=== PATIENT | female | born 1970 | race Caucasian/White ===

== ENCOUNTER → 2017-03-29 | Outpatient (CLI) | payer OTHER ==
[~2017-03-29] MED LIST: B-CO1CAP2 PO; CALC500C70 PO; CHOL1TAB2 PO; DOCU-94; HYD50; MULT-506 PO; NRN/100 PO; PRLSR20 PO
[2017-03-29 07:29] LABS: THYROID STIMULATING HORMONE 0.871 uIu/ml (0.300-4.500)
== END | disposition home or self-care (01) ==
LOC: C.LAB 04:55
PROVIDERS: ATTEND Physician Assistant
DX: E03.9 Hypothyroidism, unspecified (principal)

== ENCOUNTER → 2017-03-30 | Outpatient (CLI) | payer OTHER ==
--- NOTE | 2017-03-30 15:41 | MAMMOGRAPHY REPORT ---
BILATERAL DIGITAL SCREENING MAMMOGRAM TOMOSYNTHESIS WITH CAD: 03/30/2017 CLINICAL HISTORY: Routine screening. Patient has no complaints. TECHNIQUE: Breast tomosynthesis in addition to standard 2D mammography was performed. Current study was also evaluated with a Computer Aided Detection (CAD) system. COMPARISON: Comparison is made to exams dated: 10/30/2013 mammogram, 10/04/2012 mammogram, 09/14/2011 mammogram, and 09/07/2011 mammogram - [facility]. BREAST COMPOSITION: The tissue of both breasts is almost entirely fatty. FINDINGS: No suspicious masses, calcifications, or areas of architectural distortion are noted in e ither breast. There has been no significant interval change compared to prior exams. Scattered bilat eral benign-appearing calcifications are not significantly changed. IMPRESSION: ACR BI-RADS CATEGORY 2: BENIGN There is no mammographic evidence of malignancy. A 1 year screening mammogram is recommended. The p atient will receive written notification of the results. Approximately 10% of breast cancers are not detected with mammography. A negative mammographic repor t should not delay biopsy if a clinically suggestive mass is present. Danuta Dill M.D. /:03/30/2017 12:13:51 Moose Hunter: Sarah PADGETT(Jose)(Suzy)(BD), [facility] letter sent: Normal 1/2 BI-RADS Code: ACR BI-RADS Category 2: Benign
== END | disposition home or self-care (01) ==
LOC: C.MAMM 09:16
PROVIDERS: ATTEND Physician Assistant
DX: Z12.31 Encounter for screening mammogram for malignant neoplasm of breast (principal); Z85.3 Personal history of malignant neoplasm of breast; Z08 Encounter for follow-up examination after completed treatment for malignant neoplasm

== ENCOUNTER 2019-03-10 07:10 | Observation (INO) ==
--- NOTE | 2019-03-06 10:06 | Anesthesiology Consultation ---
Date of Service March 06, 2019 Assessment & Plan (1) Encounter for pre-operative examination: Chart Review Chart Review: Acceptable Risk for Surgery and Patient seen in Pre Admission Testing Consults Requested none Teaching & Discussion Instructed NPO after midnight before surgery, except medications with 15 cc of water. Medication instructions provided according to the PAT guidelines. ASA ASA2 Proposed Anesthesia Anesthesia Type: General Risk / Benefits Reviewed With: PT / POA / Parent / Guardian, Accepts Plan and Informed Consent Obtained NPO Date Last Intake of Fluids: 03/09/19 Time Last Intake of Fluids: 21:00 Date Last Intake of Solids: 03/09/19 Time Last Intake of Solids: 21:00 History Surgery Operation Date: 03/10/19 08:20 Proposed Procedures p Laparoscopic Incisional Hernia Repair - Amos Knowles MD, FACS Height/Weight Height: 5 ft 3 in Weight: 91.9 kg Allergies Allergy/AdvReac Type Severity Reaction Status Date / Time nortriptyline AdvReac Unknown Tachycardia Verified 03/10/19 07:26 Medications Home Medications Medication Instructions Recorded Confirmed Last Taken bisacodyl [Dulcolax (bisacodyl)] 5 mg PO HS PRN 02/27/19 03/10/19 03/07/19 22:00 cholecalciferol (vitamin D3) 1,000 unit PO DAILY 02/27/19 03/10/19 03/09/19 10:00 [Vitamin D3] clonazepam 0.5 mg PO HS PRN 02/27/19 03/10/19 03/07/19 22:00 docusate sodium [Stool Softener] 100 mg PO DAILY 02/27/19 03/10/19 03/08/19 10:00 furosemide 40 mg PO DAILY 02/27/19 03/10/19 03/09/19 10:00 levothyroxine 100 mcg PO QAM 02/27/19 03/10/19 03/10/19 05:00 magnesium chloride [Slow-Mag] 71.5 mg PO DAILY 02/27/19 03/10/19 03/09/19 10:00 meloxicam 15 mg PO DAILY 02/27/19 03/10/19 03/09/19 10:00 multivitamin 1 tab PO DAILY 02/27/19 03/10/19 03/09/19 10:00 omeprazole 20 mg PO DAILY PRN 02/27/19 03/10/19 03/10/19 05:45 polyethylene glycol 3350 [Miralax] 17 g PO Q2D 02/27/19 03/10/19 03/07/19 22:00 potassium bicarb-magnesium 21 1 dose PO Q3D 02/27/19 03/10/19 03/09/19 10:00 tizanidine 4 mg PO HS 02/27/19 03/10/19 03/09/19 22:00 vitamin B complex 1 tab PO DAILY 02/27/19 03/10/19 03/09/19 10:00 zolpidem [Ambien CR] 12.5 mg PO HS PRN 02/27/19 03/10/19 03/09/19 22:00 Past Medical History Medical History GERD (gastroesophageal reflux disease) Hypothyroidism Migraine Peptic ulcer disease H/O Thyroid nodule MONITORING Mitral regurgitation MILD per 2013 echo Past Family History Family History Father Family history of diabetes mellitus Past Surgical History Surgical History History of adenoidectomy History of colonoscopy History of esophagogastroduodenoscopy (EGD) History of herniorrhaphy INGUINAL HERNIA History of hysterectomy LAP TOTAL HYSTER History of tonsillectomy History of bladder surgery Bladder tack Past Anesthesia History No Hx of Anesthesia Complications and No Family Hx of Anesthesia Complications 2013 umbilical hernia repair [facility] = MAC 3, ETT 7.0, grade view I. Smooth IV induction with atraumatic ETT placement. 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 Current sinus infection, on Z pac now. Physical Exam Vital Signs Last Vital Signs Temp 36.9 C 03/10/19 07:33 Pulse 82 03/10/19 07:33 Resp 18 03/10/19 07:33 BP 176/84 H 03/10/19 07:33 BP: 171/88 (pt is very anxious today. Rpt manual LUE 142/82 10 mins later) P: 79bpm SPO2: 97% RA T: 98.3 F R: 16 ENMT Mouth: + chipped teeth (one upper L molar broken); no dental restorations and no loose teeth Thyromental Distance: > or= 3.5 Finger Breadths (3.5) Mallampati Class: II Neck normal visual inspection, trachea midline and + thick neck; neck extension not limited Respiratory normal respiratory effort Auscultation: lungs clear to auscultation bilaterally Cardiovascular Rate/Rhythm: regular rate and regular rhythm Heart Sounds: no murmur Vessels: no carotid bruit Extremities: no edema Musculoskeletal Spine: normal cervical ROM Neurologic moves all extremities Motor/Sensory: no sensory deficit Psychiatric Orientation: alert and oriented x 3 Testing Electrocardiogram Date: 03/06/19 Findings: + NSR @ (73) Laboratory Results 03/06/19 10:31 03/06/19 10:31
--- NOTE | 2019-03-06 10:20 | PAT Medication Instructions ---
Medication Instructions Date of Service March 06, 2019 Home Medications bisacodyl [Dulcolax (bisacodyl)] 5 mg PO HS cholecalciferol (vitamin D3) 1,000 unit PO DAILY clonazepam 0.5 mg PO HS PRN docusate sodium [Stool Softener] 100 mg PO DAILY furosemide 40 mg PO DAILY levothyroxine 100 mcg PO QAM magnesium chloride [Slow-Mag] 71.5 mg PO DAILY meloxicam 15 mg PO DAILY multivitamin 1 tab PO DAILY omeprazole 20 mg PO DAILY PRN polyethylene glycol 3350 [Miralax] 17 g PO Q2D potassium bicarb-magnesium 21 1 dose PO Q3D tizanidine 4 mg PO HS vitamin B complex 1 tab PO DAILY zolpidem [Ambien CR] 12.5 mg PO HS PRN ASK your surgeon for instructions meloxicam 15 mg PO DAILY DO NOT take the morning of surgery cholecalciferol (vitamin D3) 1,000 unit PO DAILY docusate sodium [Stool Softener] 100 mg PO DAILY furosemide 40 mg PO DAILY magnesium chloride [Slow-Mag] 71.5 mg PO DAILY multivitamin 1 tab PO DAILY polyethylene glycol 3350 [Miralax] 17 g PO Q2D potassium bicarb-magnesium 21 1 dose PO Q3D vitamin B complex 1 tab PO DAILY Take morning of surgery With a small sip of water, OTHERWISE NOTHING TO EAT OR DRINK AFTER MIDNIGHT: levothyroxine 100 mcg PO QAM omeprazole 20 mg PO DAILY PRN Take evening before surgery bisacodyl [Dulcolax (bisacodyl)] 5 mg PO HS clonazepam 0.5 mg PO HS PRN tizanidine 4 mg PO HS zolpidem [Ambien CR] 12.5 mg PO HS PRN Insulin Dependent Diabetic Patients * Test your blood sugar the morning of surgery * If Blood Sugar is GREATER THAN 150, take HALF of your regular dose of: * If Blood Sugar is LESS THAN 150, DO NOT TAKE ANY: Other Notes If you have any questions please call us at [phone] or [phone] or [phone] or [phone]
[2019-03-06 11:25] LABS: Basophils # (auto) 0.02 K/uL (0-0.2); Basophils % (auto) 0.3 %; Eosinophils # (auto) 0.24 K/uL (0-0.5); Eosinophils % (auto) 3.3 %; Hemoglobin 15.6 g/dL (12.0-16.0); Immature Granulocytes # (auto) 0.03 K/uL (0.00-0.02); Immature Granulocytes % (auto) 0.4 %; Lymphocytes # (auto) 2.14 K/uL (1.2-3.4); Lymphocytes % (auto) 29.1 %; Mean Corpuscular Hgb Conc 34.7 g/dL (32-36); Mean Corpuscular Volume 89.8 fL (80-100); Mean Platelet Volume 11.4 fL (7.4-10.4); Monocytes # (auto) 0.61 K/uL (0.11-0.59); Monocytes % (auto) 8.3 %; Neutrophils # (auto) 4.31 K/uL (1.4-6.5); Neutrophils % (auto) 58.6 %; Platelet Count 217 K/uL (130-400); RDW Coefficient of Variation 13.1 % (11.5-14.5); RDW Standard Deviation 42.7 fL (36.4-46.3); Red Blood Count 5.01 M/uL (4.2-5.4); White Blood Count 7.35 K/uL (4.8-10.8)
[2019-03-06 11:37] LABS: Calcium 9.4 mg/dl (8.5-10.1); Creatinine Clr Calc Pharmacy 95.3 ml/min; Est GFR (Non-African American) 91.5; Potassium 3.4 mmol/L (3.5-5.1)
[~2019-03-10 07:10] MED LIST changes: -B-CO1CAP2 PO; -CALC500C70 PO; +CEFAZOLIN 2000MG 2,000 MG/15 ML SYR IV SCH; -CHOL1TAB2 PO; -DOCU-94; -HYD50; +LR 15ML/HR IV SCH; -MULT-506 PO; -NRN/100 PO; -PRLSR20 PO
[2019-03-10] MEDS ORDERED: PROPOFOL IV EMULSION 10 MG/ML 20 ML VIAL IV ONE (07:27)
[2019-03-10] MEDS ORDERED: LIDOCAINE HCL 2% 2 ML VIAL/AMP(20MG/ML) INFIL ONE (07:27)
[2019-03-10] MEDS ORDERED: fentaNYL citrate 100 MCG/2 ML VIAL ONE (07:27)
[2019-03-10] MEDS ORDERED: ONDANSETRON INJ 2 MG/ML 2 ML VIAL ONE (07:27)
[2019-03-10] MEDS ORDERED: ROCURONIUM BROMIDE 10 MG/ML 5 ML VIAL ONE (07:27)
[2019-03-10] MEDS ORDERED: DEXAMETHASONE SOD INJ 4 MG/ML VIAL ONE (07:27)
[2019-03-10] MEDS ORDERED: MIDAZOLAM HCL 1 MG/ML 2ML VIAL ONE (07:27)
--- NOTE | 2019-03-10 08:02 | History & Physical Bridge Note ---
Date of Service March 10, 2019 History & Physical Bridge Note I have examined the patient, reviewed the History & Physical and in the interval since the performance of the History & Physical I have noted the following changes of clinical significance: no changes noted
[2019-03-10] MEDS ORDERED: BUPIVACAINE 0.5 % 5 MG/1 ML MPF 30ML VIAL ONE (08:03)
[2019-03-10] MEDS ORDERED: GLYCOPYRROLATE 0.2 MG/ML VIAL ONE ×2 (08:32→08:58)
[2019-03-10] MEDS ORDERED: NEOSTIGMINE METHYLSULFATE 5 MG/5 ML SYR ONE (08:32)
[2019-03-10] MEDS ORDERED: ACETAMINOPHEN 1000 MG/100 ML IV IV ONE (08:43)
[2019-03-10] MEDS ORDERED: ACETAMINOPHEN 1,000 MG/100 ML VIAL IV ONE (08:59)
--- NOTE | 2019-03-10 08:59 | Operative Report ---
Post Operative Report Pre & Post Diagnosis Operation Date: 03/10/19 08:20 Pre-Op Diagnosis: Incisional Hernia Post-Op Diagnosis: Incisional Hernia Procedure Operation Date: 03/10/19 08:20 Actual Procedures p Laparoscopic Incisional Hernia Repair(Not Applicable) - Amos Knowles MD, FACS Surgeon Amos Knowles MD, FACS [employer] Instruments Supervisor Chiki Quintero Estimated Blood Loss 5 Findings Consistent with Post-Op Diagnosis Specimens none Description of Procedure see dictation pt had 3 defects- used 12.5 cm surgimesh I attest to the content of the Intraoperative Record and any orders documented therein. Any exceptions are noted below.
[2019-03-10] MEDS ORDERED: KETOROLAC 30 MG/ML VIAL ONE (09:05)
--- NOTE | 2019-03-10 09:18 | Operative Report ---
DATE OF OPERATION: 03/10/2019 NAME OF OPERATION: Laparoscopic repair of incision hernia (3 defects), lysis of adhesions. STAFF SURGEON: Amos Knowles MD GIS GEOGRAPHER: Adrien Quintero PA-C ANESTHESIA: General. DESCRIPTION OF PROCEDURE: The patient was brought in the operating room and placed on the operating table in supine position. Her abdomen was prepped and draped in usual fashion. Pneumatic stockings and orogastric tube were placed. Using 0.5% plain Marcaine, all incisions were anesthetized. Incision was made in the left upper quadrant carrying dissection down to the fascia, placing a Veress needle producing pneumoperitoneum. An 11 mm port was placed at this level and then under visualization, four 5 mm ports placed, 2 on the left, 2 on the right. This was all under visualization. The patient did have some omentum and also what appeared to be small bowel within an incisional hernia just above the umbilicus. The hernia was relatively small, less than 2 cm. She had another defect approximately 1.5 cm above that and then at the umbilicus, there was a weakness. At this point, I felt that a 12.5 cm piece of Surgimesh would be appropriate to cover all defects. It was placed into the abdomen through an 11 mm port. The polypropylene was placed toward the fascia, the silicone toward the bowel. This was after the adhesions were taken down. Once the adhesions were all taken down and the mesh was placed into the abdomen, it was brought up through a small incision using a suture passer and then it was secured with 2 rows of absorbable tacks, 1 outer row and 1 inner row. At this point, the pneumoperitoneum was reduced. All ports were removed. The fascia at the left upper quadrant closed using interrupted 0 Vicryl suture. The 5 mm sites closed using subcuticular 4-0 Monocryl with Dermabond. The small incision near the umbilicus and then the left upper quadrant sites closed using 5-0 Prolene suture. The patient transferred to the recovery room in stable condition. My market research assistant helped with prepping, draping, repair of the hernias, lysis of the adhesions and closure of the wounds. I attest to the content of the Intraoperative Record and any orders documented therein. Any exception s are noted below.
[2019-03-10] MEDS ORDERED: ATROPINE SULFATE 0.1 MG/ML 10ML SYR IV PRN (09:19)
[2019-03-10] MEDS ORDERED: ONDANSETRON INJ 2 MG/ML 2 ML VIAL IV PRN ×2 (09:19→10:19)
[2019-03-10] MEDS ORDERED: FLUMAZENIL 0.1 MG/1 ML 10 ML VIAL IV PRN (09:19)
[2019-03-10] MEDS ORDERED: NALOXONE HCL 0.4 MG/1 ML VIAL/CARP IV PRN (09:19)
[2019-03-10] MEDS ORDERED: PROMETHAZINE HCL 12.5 MG in SODIUM CHLORIDE 0.9% 50 ML IV PRN ×2 (09:19→10:19)
[2019-03-10] MEDS ORDERED: LABETALOL HCL IV 5 MG/ML 20ML IV PRN (09:19)
[2019-03-10] MEDS ORDERED: ePHEDrine sulfate 50 MG/ML AMP IV PRN (09:19)
[2019-03-10] MEDS ORDERED: HYDROmorphone INJ 1 MG/ML SYRINGE ONE (09:24)
[2019-03-10] MEDS: HYDROmorphone INJ 1 MG/ML SYRINGE IV PRN ×5 (09:24→20:58)
--- NOTE | 2019-03-10 09:50 | Anesthesiology Progress Note ---
Date of Service March 10, 2019 Anesthesia Post Procedure Vital Signs Vital Signs: Temp Pulse Pulse Resp BP BP Pulse Ox 03/10/19 09:45 88 13 141/80 H 97 03/10/19 09:35 86 14 153/79 H 97 03/10/19 09:25 86 17 155/80 H 96 03/10/19 09:16 36.3 C L 96 H 12 141/80 H 94 03/10/19 07:33 36.9 C 82 18 176/84 H Pain Intensity Abdomen: Pain Intensity: 3 Notes Mental Status: alert / awake / arousable Patient Amnestic to Procedure: Yes Nausea / Vomiting: adequately controlled Pain: adequately controlled Airway Patency, RR, SpO2: stable & adequate BP & HR: stable & adequate Hydration State: stable & adequate Anesthetic Complications: no major complications apparent
[2019-03-10] MEDS ORDERED: IBUPROFEN 600 MG TAB PO PRN (10:19)
[2019-03-10] MEDS ORDERED: clonazePAM 0.5 MG TAB PO PRN (10:19)
[2019-03-10] MEDS ORDERED: PANTOprazole 40 MG TAB PO PRN (10:19)
[2019-03-10] MEDS ORDERED: HYDROCODONE/ACETAMOPHEN 5/325MG TAB PO PRN (10:19)
[2019-03-10] MEDS ORDERED: ACETAMINOPHEN 325 MG TAB PO PRN (10:19)
[2019-03-10] MEDS ORDERED: PROMETHAZINE HCL 25 MG in SODIUM CHLORIDE 0.9% 50 ML IV PRN (10:19)
[2019-03-10] MEDS ORDERED: SODIUM CHLORIDE 0.9% 1000ML 1,000 ML IV SCH (10:30)
[2019-03-10] MEDS: LEVOTHYROXINE SODIUM 100 MCG TABLET PO SCH (11:59)
[2019-03-10] MEDS: FUROSEMIDE 40 MG TAB PO SCH (12:00)
[2019-03-10] MEDS ORDERED: HYDROmorphone INJ 0.5 MG/0.5 ML SYR IV PRN (14:20)
[2019-03-10] MEDS ORDERED: TRAMADOL HCL 50 MG TABLET PO PRN (14:22)
[2019-03-10] MEDS ORDERED: HYDROmorphone INJ 1 MG/ML SYRINGE IV PRN (14:22)
[2019-03-10] MEDS: CEFAZOLIN 1000MG 1,000 MG/7.5 ML SYR IV SCH ×2 (16:04→23:34)
[2019-03-10] MEDS: DOCUSATE SODIUM/SENNA 50/8.6MG TAB PO SCH (20:58)
[2019-03-10] MEDS: MAGNESIUM HYDROXIDE SUSP 30 ML UDC PO SCH (20:58)
[2019-03-11] MEDS: FUROSEMIDE 40 MG TAB PO SCH (07:37)
[2019-03-11] MEDS: CEFAZOLIN 1000MG 1,000 MG/7.5 ML SYR IV SCH (07:37)
[2019-03-11] MEDS: LEVOTHYROXINE SODIUM 100 MCG TABLET PO SCH (07:38)
--- NOTE | 2019-03-11 07:48 | Anesthesiology Progress Note ---
Date of Service March 11, 2019 Anesthesia Post Procedure Vital Signs Vital Signs: Temp Pulse Pulse Resp BP Pulse Ox 03/11/19 07:10 36.9 C 66 18 161/74 H 94 03/11/19 03:40 36.8 C 87 16 149/75 H 95 03/10/19 23:09 36.6 C 93 H 20 158/84 H 95 03/10/19 19:49 36.7 C 64 18 146/75 H 96 03/10/19 15:19 36.7 C 97 H 18 149/76 H 94 03/10/19 13:12 36.5 C 89 20 163/78 H 96 03/10/19 12:07 89 17 158/92 H 96 03/10/19 11:10 82 18 148/83 H 95 03/10/19 10:40 36.3 C L 88 18 152/81 H 96 03/10/19 09:55 36.9 C 90 18 147/73 H 97 03/10/19 09:45 88 13 141/80 H 97 03/10/19 09:35 86 14 153/79 H 97 03/10/19 09:25 86 17 155/80 H 96 03/10/19 09:16 36.3 C L 96 H 12 141/80 H 94 Pain Intensity Abdomen: Pain Intensity: 3 Notes Mental Status: alert / awake / arousable and participated in evaluation Patient Amnestic to Procedure: Yes Nausea / Vomiting: adequately controlled Pain: adequately controlled Airway Patency, RR, SpO2: stable & adequate BP & HR: stable & adequate Hydration State: stable & adequate Anesthetic Complications: no major complications apparent
[2019-03-11] MEDS: DOCUSATE SODIUM/SENNA 50/8.6MG TAB PO SCH (08:57)
[2019-03-11] MEDS: MAGNESIUM HYDROXIDE SUSP 30 ML UDC PO SCH (08:57)
[2019-03-11] MEDS: HYDROCODONE/ACETAMOPHEN 5/325MG TAB PO PRN ×2 (09:02→10:57)
--- NOTE | 2019-03-11 11:28 | Discharge Summary ---
DATE OF ADMISSION: 03/10/2019 PRINCIPAL DIAGNOSIS: Incisional hernia. PROCEDURES: The patient underwent laparoscopic incisional hernia repair. HISTORY OF PRESENT ILLNESS: The patient is a 49-year-old female who has undergone a prior laparoscopic procedures and hernia repair with recurrence of incisional hernia. HOSPITAL COURSE: The patient was brought into the hospital on 03/10/2019 for elective surgery for her hernias. She underwent laparoscopic repair of her incisional hernia and also had a defect at the umbilicus and just above the main hernia. All fixed at one point. She has done very well overnight and felt stable for discharge home today to be followed in the surgical clinic next week.
== END 2019-03-11 11:35 | disposition home or self-care (01) ==
LOC: ASU 07:10 → 3W 07:10

== ENCOUNTER 2023-09-05 13:34 | Inpatient (IN) ==
[2023-09-05 15:41] LABS: Basophils # (auto) 0.08 K/uL (0.00-0.20); Basophils % (auto) 0.5 %; Eosinophils % (auto) 1.8 %; Hematocrit (blood only) 45.8 % (37.0-47.0); Hemoglobin 15.8 g/dl (12.0-16.0); Immature Granulocytes # (auto) 0.29 K/uL (0.01-0.20); Immature Granulocytes % (auto) 1.7 %; Lymphocytes # (auto) 1.53 K/uL (1.20-3.40); Lymphocytes % (auto) 9.1 %; Mean Corpuscular Hemoglobin 29.9 pg (25.0-34.0); Mean Corpuscular Hgb Conc 34.5 g/dL (32.0-36.0); Mean Corpuscular Volume 86.6 fL (80.0-100.0); Monocytes % (auto) 7.1 %; Neutrophils # (auto) 13.43 K/uL (1.40-6.50); Neutrophils % (auto) 79.8 %; Platelet Count 327 K/uL (130-400); RDW Coefficient of Variation 13.2 % (11.5-14.5); RDW Standard Deviation 41.2 fL (36.4-46.3); Red Blood Count 5.29 M/uL (4.20-5.40); White Blood Count 16.83 K/ul (4.8-10.8)
[2023-09-05 15:59] LABS: Albumin Globulin Ratio 1.2 (0.9-2); Albumin Level 4.2 gm/dl (3.4-5.0); BUN Creatinine Ratio 17.2 (10-20); Bilirubin,Total 1.8 mg/dl (0.2-1.0); Calcium 9.4 mg/dl (8.6-10.3); Creatinine Clr Calc Pharmacy 106.1 ml/min; Est GFR (African American) 117.3 ml/min; Est GFR (Non-African American) 101.2 ml/min; Globulin 3.4 gm/dl (2.5-4.0); Potassium 3.1 mmol/L (3.5-5.1); Total Protein 7.6 gm/dl (6.0-8.3)
[2023-09-05 16:14] LABS: INR 1.1 (0.9-1.1); Partial Thromboplastin Ratio 1.1; Partial Thromboplastin Time 31.3 Seconds (21.0-31.0); Prothrombin Time 12.3 Seconds (9.0-12.0)
--- NOTE | 2023-09-05 16:33 | Electrocardiogram Report ---
Test Reason : Blood Pressure : / mmHG Vent. Rate : 097 BPM Atrial Rate : 097 BPM P-R Int : 132 ms QRS Dur : 096 ms QT Int : 376 ms P-R-T Axes : 057 025 011 degrees QTc Int : 477 ms Poor data quality, interpretation may be adversely affected Normal sinus rhythm Possible Left atrial enlargement Inferior infarct , age undetermined Abnormal ECG When compared with ECG of 27-AUG-2023 07:31, Vent. rate has increased BY 39 BPM Inferior infarct is now Present T wave inversion now evident in Inferior leads Confirmed by Agustin Hogue ([id number]) on 09/05/2023 4:33:23 PM Referred By: Confirmed By:Agustin Hogue
[2023-09-05 17:21] LABS: Appearance Urine Clear (Clear); Bilirubin Urine Negative (Negative); Blood Urine Negative (Negative); Color Urine Yellow; Glucose Urine UA Negative (Negative); Ketones Urine Negative (Negative); Leukocyte Esterase Urine Negative (Negative); Nitrite Urine Negative (Negative); Protein Urine Negative (Negative); Specific Gravity Urine 1.006 (1.000-1.030); Urobilinogen Urine Negative (Negative)
[2023-09-05] MEDS ORDERED: OPTIRAY 320 100ml IV ONE (17:22)
[2023-09-05] MEDS ORDERED: SODIUM CHLORIDE 0.9% 500 ML IV ONE (17:46)
[2023-09-05] MEDS ORDERED: POTASSIUM CHLORIDE / WTR 10 MEQ/100 ML PLCT IV ONE (17:46)
--- NOTE | 2023-09-05 17:46 | Emergency Department Note ---
Impression & Plan Acute postoperative abdominal pain, Leukocytosis, Acute hypokalemia, Bile leak, postoperative ED Provider Note INFORMANT: Patient ED PROVIDER(S): Bethel Perry MD CHIEF COMPLAINT: Abdominal pain PLAN: Disposition: Admitted Outpatient prescription management: none Referral: None MEDICAL DECISION MAKING: Patient presented because of abdominal pain. She recently had surgery. She has some irritation at the trocar sites but no evidence of cellulitis or abscess. She was tender. Initially declined analgesia. The patient underwent CT imaging after blood work revealed the presence of leukocytosis and hypokalemia. The patient does have an elevation of her LFTs as well. She was given IV potassium. Patient was hydrated. She was found to have a large fluid collection in the area of the gallbladder fossa and right upper quadrant. There was some possible inflammation of the ducts as well. In light of these findings and elevated white blood cell count I did consult with general surgery, Dr. Hickey. I noted initiation of antibiotics and he was in agreement. Patient will be evaluated an d admitted to the surgical service. Patient then excepted some analgesia and Dilaudid and Zofran were ordered. Care/management discussed with: Discussed with manager intensive care Level of care consideration(s): After review of the information above and other included data, I feel the patient requires escalation of care and admission Triage Nursing notes: reviewed and agree them. Vital Signs: reviewed and remarkable for no significant abnormalities Additional History obtained from: none Chronic Medical/Social Conditions affecting care: Anticoagulation, DVT Prior /Outside records reviewed: none Differential Diagnosis: Postoperative bleeding, biloma, abscess,Renal colic, UTI, appendicitis, diverticulitis, mesenteric ischemia, aortic pathology, infections, inflammatory bowel disease, PUD, biliary pathology, as well as other pathologies. Diagnostics, independently interpreted by me: ECG: Twelve-lead ECG reveals normal sinus rhythm with left atrial enlargement inferior Q waves and [address] elevation or depression. Cardiac Monitoring: Cardiac monitoring ordered by me: The patient was placed on continuous cardiac monitoring and observed. It revealed a normal sinus rhythm at 86 beats per minute without ectopy or evidence of dysrhythmia. Medical decision rules: none Imaging studies: CT scan of the abdomen pelvis reveals a large fluid collection in the right upper quadrant as well as trace fluid in the pelvis concerning for a bile leak. HPI: The patient is a 53-year-old female who arrives for evaluation of abdominal pain and flank pain. Patient notes she had gallbladder surgery done here 5 days ago. She developed pain in the right lower and left lower side of the abdomen. She rates the pain at 10 out of 10. Patient also noted some erythema and itching at the trocar sites. She was concerned about a reaction to the adhesive. Patient does note some bruising on the abdomen as well. She just restarted her anticoagulation.. Pt denies LOC, headache, fevers, chills, diaphoresis, visual changes, neck pain, chest pain, breathing difficulties, nausea, vomiting, back pain, melena, hematochezia, urinary symptoms, numbness, weakness, lymphadenopathy, rash, or other complaints. PAST MEDICAL HISTORY: See Below, DVT, COVID-19 PAST SURGICAL HISTORY: See Below, cholecystectomy SOCIAL HISTORY: See Below, non-smoker HOME MEDICATIONS: See Below ALLERGIES: See Below VITALS: See Below PHYSICAL EXAMINATION: GENERAL: Awake, alert, uncomfortable-appearing, in no distress HENT: Normocephalic, atraumatic. Oropharynx unremarkable. EYES: Normal conjunctiva. Sclera non-icteric. NECK: Inspection normal. Non-tender. Supple. No nuchal rigidity. FROM. No masses. RESPIRATORY: Clear to auscultation. No wheezes. No rales. Normal respiratory effort. CARDIAC: Normal rate. Normal rhythm. No murmurs. No rubs. Extremities warm and well perfused. Pulses equal. No JVD. GI: Soft, non-distended. Right upper quadrant and bilateral lower quadrant tenderness to palpation. No rebound but mild guarding. No masses. There are several trocar sites on the anterior abdominal wall that are erythematous along the closure lines. No purulent discharge. No dehiscence. There are some mild right flank bruising noted. RECTAL: Deferred. MUSCULOSKELETAL: Atraumatic. Chest examination reveals no tenderness. The back is symmetrical on inspection without obvious abnormality. There is no CVA tenderness to palpation. No joint edema. LOWER EXTREMITIES: The right leg is larger than the left which patient states is chronic from a history of venous problems and DVT no edema. Chronic venous discoloration. NEURO: Normal sensorium. No sensory or motor deficits noted. SKIN: No rash or jaundice noted. PROCEDURES: none CRITICAL CARE: none OBSERVATION NOTE: none Past Med/Surg History Medical History Deep vein thrombosis (DVT) associated with COVID-19 2020 (after COVID), taking Eliquis Edema of right lower extremity GERD (gastroesophageal reflux disease) History of COVID-19 2020- Developed DVT 08/2022 Hypothyroidism Migraine Mitral regurgitation Echo 2012: Mild MR. Anatomically normal MV without prolapse. Peptic ulcer disease Hx Thyroid nodule Under surveillance Surgical History History of adenoidectomy History of anterior colporrhaphy repair of cystocele History of bladder surgery Bladder tack History of colonoscopy History of esophagogastroduodenoscopy (EGD) History of herniorrhaphy INGUINAL HERNIA History of hysterectomy Lap Total History of hysteroscopy with endometrial ablation, and resection for intrauterine polyp removal. History of oral surgery tooth extraction History of salpingo-oophorectomy History of tonsillectomy History of tubal ligation Hx laparoscopic cholecystectomy (08/31/23) Laparoscopic Cholecystectomy and Intra-Abdominal Exploration, Lysis of Adhesions(Not Applicable) - Renata Sandoval DO S/P laparoscopic hernia repair 2019 Lap incisional hernia repair x3 + DURGA Family History Father Family history of diabetes mellitus Mother Breast cancer age 74 Aunt Ovarian cancer Paternal Grandfather (Paternal) Prostate cancer Other Diabetes Heart disease No family history of adverse response to anesthesia Denies family history of Colorectal cancer Social History Smoking Status: Never smoker Second Hand Exposure: No; Do You Dip or Chew Tobacco: No; Hx Alcohol Use: Yes Alcohol type: wine Hx Substance Use: No Preferred Language: Urdu Communication Ability: Effective Visual Impairment: Partially Limited Zoning Technician Required: No Beliefs That Will Affect Care: None marital status: Current Living Situation: Spouse current occupational status: employed 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[employer] How many Children do You have: 3 Other Information That Helps Us Care for You: No Feels Safe at Home: Yes Safety Concerns: Feels Safe At This Time Diet: regular during the past year weight has: remained stable Assistive Devices: Glasses Allergies Allergies Allergy/AdvReac Type Severity Reaction Status Date / Time chlorhexidine Allergy Intermediate swelling, Verified 08/31/23 05:59 pain, redness, itchy at incision sites nortriptyline Allergy Intermediate Tachycardia Verified 08/31/23 05:59 oxycodone AdvReac Mild Flushing Verified 08/31/23 14:07 Home Meds Home Medications Medication Instructions Recorded Confirmed docusate sodium 100 mg capsule 100 mg PO DAILY PRN Constipation 02/27/19 09/05/23 (Stool Softener) multivitamin 1 tab PO QAM 02/27/19 09/05/23 tizanidine 2 mg tablet 2 mg PO HS 02/27/19 09/05/23 lisinopril 2.5 mg tablet 2.5 mg PO QAM 07/18/19 09/05/23 torsemide 20 mg tablet 20 mg PO QAM 07/18/19 09/05/23 magnesium chloride 64 mg 64 mg PO QAM 07/22/20 09/05/23 tablet,extended release melatonin 3 mg capsule 6 mg PO HS PRN Sleep 07/22/20 09/05/23 vitamin B complex 1 tab PO QAM 07/22/20 09/05/23 cholecalciferol (vitamin D3) 50 2,000 unit PO QAM 02/03/21 09/05/23 mcg (2,000 unit) capsule levothyroxine 100 mcg tablet 100 mcg PO QAM 12/19/21 09/05/23 vitamins A,C,H-lwkg-kyfmxt 2,148 1 tab PO QAM 08/22/23 09/05/23 mcg-113 mg-45 mg-17.4 mg tablet (PreserVision AREDS) zinc 1 tab PO QAM PRN Other 08/22/23 09/05/23 zolpidem 6.25 mg tablet,extended 6.25 mg PO HS PRN Sleep 08/22/23 09/05/23 release,multiphase (Ambien CR) acetaminophen 500 mg tablet 500 mg PO Q8H PRN Pain 09/05/23 09/05/23 betamethasone, augmented 0.05 % 1 applic topical BID PRN Rash 09/05/23 09/05/23 topical cream omeprazole 20 mg capsule,delayed 20 mg PO QAM PRN Heartburn 09/05/23 09/05/23 release Previous Rx's Medication Instructions Recorded sumatriptan succinate 100 mg tablet 100 mg PO .COMPLEX PRN migraine 07/22/20 headache 30 days #9 tabs apixaban 5 mg tablet (Eliquis) 5 mg PO BID #60 tabs 12/08/22 hydrocodone 5 mg-acetaminophen 325 1 - 2 tab PO .[id number] PRN pain #15 08/31/23 mg tablet tabs Results & Data (ED) Vital Signs Vital Signs - 24 hr 09/05/23 14:25 09/05/23 16:16 09/05/23 16:30 Temperature 36.4 C L Temperature Source Temporal Artery Scan Pulse Rate 94 H 86 Pulse Rate [Apical] Pulse Rate from SpO2 Sensor Pulse Rhythm [Apical] Respiratory Rate 20 Respiratory Depth Blood Pressure 155/87 H Blood Pressure [Left Arm] Blood Pressure Mean 109 Blood Pressure Mean [Left Arm] Pulse Oximetry 96 97 Oxygen Delivery Method Room Air Room Air Sepsis Recent Fever Within 48 Hours No Sepsis New/Unexplained Change in Mental Status N/A Sepsis Action Taken by Nursing No Action Required 09/05/23 17:24 09/05/23 17:30 09/05/23 19:02 Temperature Temperature Source Pulse Rate 89 86 Pulse Rate [Apical] 89 Pulse Rate from SpO2 Sensor 89 87 Pulse Rhythm [Apical] Regular Respiratory Rate 21 20 25 H Respiratory Depth Normal Blood Pressure 142/96 H 150/69 H Blood Pressure [Left Arm] 191/109 H Blood Pressure Mean 111 96 Blood Pressure Mean [Left Arm] 136 Pulse Oximetry 98 96 97 Oxygen Delivery Method Room Air Sepsis Recent Fever Within 48 Hours Sepsis New/Unexplained Change in Mental Status Sepsis Action Taken by Nursing 09/05/23 19:00 Temperature Temperature Source Pulse Rate 84 Pulse Rate [Apical] Pulse Rate from SpO2 Sensor Pulse Rhythm [Apical] Respiratory Rate 20 Respiratory Depth Blood Pressure 191/109 H Blood Pressure [Left Arm] Blood Pressure Mean 136 Blood Pressure Mean [Left Arm] Pulse Oximetry 96 Oxygen Delivery Method Sepsis Recent Fever Within 48 Hours Sepsis New/Unexplained Change in Mental Status Sepsis Action Taken by Nursing Laboratory Data 09/05/23 15:12 09/05/23 15:12 Lab Results 09/05/23 09/05/23 09/05/23 Range/Units 15:12 15:12 15:12 WBC 16.83 H (4.8-10.8) K/ul RBC 5.29 (4.20-5.40) M/uL Hgb 15.8 (12.0-16.0) g/dl Hct 45.8 (37.0-47.0) % MCV 86.6 (80.0-100.0) fL MCH 29.9 (25.0-34.0) pg MCHC 34.5 (32.0-36.0) g/dL RDW Std Deviation 41.2 (36.4-46.3) fL RDW Coeff of Beth 13.2 (11.5-14.5) % Plt Count 327 (130-400) K/uL MPV 11.0 (9.4-12.4) fL Immature Gran % (Auto) 1.7 % Neut % (Auto) 79.8 % Lymph % (Auto) 9.1 % Graham % (Auto) 7.1 % Eos % (Auto) 1.8 % Baso % (Auto) 0.5 % Neut # (Auto) 13.43 H (1.40-6.50) K/uL Lymph # (Auto) 1.53 (1.20-3.40) K/uL Graham # (Auto) 1.20 H (0.11-0.59) K/uL Eos # (Auto) 0.30 (0.00-0.50) K/uL Baso # (Auto) 0.08 (0.00-0.20) K/uL Immature Gran # (Auto) 0.29 H (0.01-0.20) K/uL PT 12.3 H (9.0-12.0) Seconds INR 1.1 (0.9-1.1) APTT 31.3 H (21.0-31.0) Seconds PTT Ratio 1.1 Sodium 139 (136-145) mmol/L Potassium 3.1 L (3.5-5.1) mmol/L Chloride 100 (98-107) mmol/L Carbon Dioxide 29 (21-32) mmol/L Anion Gap 10 (3-11) BUN 11 (6-23) mg/dl Creatinine 0.64 (0.6-1.2) mg/dl Est Cr Clr Drug Dosing 106.1 ml/min Est GFR ( Amer) 117.3 ml/min Est GFR (Non-Af Amer) 101.2 ml/min BUN/Creatinine Ratio 17.2 (10-20) Glucose 122 H (70-99(Fasting)) mg/dl Calcium 9.4 (8.6-10.3) mg/dl Total Bilirubin 1.8 H (0.2-1.0) mg/dl AST 77 H (13-39) U/L ALT 89 H (7-52) U/L Alkaline Phosphatase 92 (34-104) U/L Troponin I High Sens (0-14) pg/ml Total Protein 7.6 (6.0-8.3) gm/dl Albumin 4.2 (3.4-5.0) gm/dl Globulin 3.4 (2.5-4.0) gm/dl Albumin/Globulin Ratio 1.2 (0.9-2) Lipase 24 (11-82) U/L Urine Color Urine Appearance (Clear) Urine pH (4.5-7.5) Ur Specific Guadalupe (1.000-1.030) Urine Protein (Negative) Urine Glucose (UA) (Negative) Urine Ketones (Negative) Urine Blood (Negative) Urine Nitrite (Negative) Urine Bilirubin (Negative) Urine Urobilinogen (Negative) Ur Leukocyte Esterase (Negative) 09/05/23 09/05/23 Range/Units 15:12 17:10 WBC (4.8-10.8) K/ul RBC (4.20-5.40) M/uL Hgb (12.0-16.0) g/dl Hct (37.0-47.0) % MCV (80.0-100.0) fL MCH (25.0-34.0) pg MCHC (32.0-36.0) g/dL RDW Std Deviation (36.4-46.3) fL RDW Coeff of Beth (11.5-14.5) % Plt Count (130-400) K/uL MPV (9.4-12.4) fL Immature Gran % (Auto) % Neut % (Auto) % Lymph % (Auto) % Graham % (Auto) % Eos % (Auto) % Baso % (Auto) % Neut # (Auto) (1.40-6.50) K/uL Lymph # (Auto) (1.20-3.40) K/uL Graham # (Auto) (0.11-0.59) K/uL Eos # (Auto) (0.00-0.50) K/uL Baso # (Auto) (0.00-0.20) K/uL Immature Gran # (Auto) (0.01-0.20) K/uL PT (9.0-12.0) Seconds INR (0.9-1.1) APTT (21.0-31.0) Seconds PTT Ratio Sodium (136-145) mmol/L Potassium (3.5-5.1) mmol/L Chloride (98-107) mmol/L Carbon Dioxide (21-32) mmol/L Anion Gap (3-11) BUN (6-23) mg/dl Creatinine (0.6-1.2) mg/dl Est Cr Clr Drug Dosing ml/min Est GFR ( Amer) ml/min Est GFR (Non-Af Amer) ml/min BUN/Creatinine Ratio (10-20) Glucose (70-99(Fasting)) mg/dl Calcium (8.6-10.3) mg/dl Total Bilirubin (0.2-1.0) mg/dl AST (13-39) U/L ALT (7-52) U/L Alkaline Phosphatase (34-104) U/L Troponin I High Sens 4.8 (0-14) pg/ml Total Protein (6.0-8.3) gm/dl Albumin (3.4-5.0) gm/dl Globulin (2.5-4.0) gm/dl Albumin/Globulin Ratio (0.9-2) Lipase (11-82) U/L Urine Color Yellow Urine Appearance Clear (Clear) Urine pH 7.0 (4.5-7.5) Ur Specific Guadalupe 1.006 (1.000-1.030) Urine Protein Negative (Negative) Urine Glucose (UA) Negative (Negative) Urine Ketones Negative (Negative) Urine Blood Negative (Negative) Urine Nitrite Negative (Negative) Urine Bilirubin Negative (Negative) Urine Urobilinogen Negative (Negative) Ur Leukocyte Esterase Negative (Negative) Administered Medications Sodium Chloride (Nss) 1,000 mls @ 125 mls/hr IV .Q8H ARLENE Stop: 10/05/23 19:29 Last Admin: 09/05/23 19:51 Dose: 125 mls/hr Documented By: EJW Potassium Chloride (K Basilio / Wtr) 10 meq in 100 mls @ 100 mls/hr IV Q1H ARLENE Stop: 09/06/23 00:59 Last Admin: 09/05/23 23:15 Dose: 25 mls/hr Documented By: BEBA Tizanidine HCl (Tizanidine Hcl 4 Mg Tablet) 2 mg PO HS ARLENE Stop: 10/05/23 21:47 Last Admin: 09/05/23 22:53 Dose: 2 mg Documented By: BEBA Discontinued Medications Hydromorphone HCl (Hydromorphone Inj 0.5 Mg/0.5 Ml Syr) 0.5 mg IV Q15M PRN PRN Reason: Pain Stop: 09/19/23 18:34 Last Admin: 09/05/23 19:52 Dose: 0.5 mg Documented By: JESUS Hydromorphone HCl (Hydromorphone Inj 0.5 Mg/0.5 Ml Syr) 0.5 mg IV Q6H PRN PRN Reason: Pain Stop: 09/19/23 19:21 Last Admin: 09/05/23 21:55 Dose: 0.5 mg Documented By: BEBA Potassium Chloride (K Basilio / Wtr) 10 meq in 100 mls @ 100 mls/hr IV ONE ONE; Protocol Stop: 09/05/23 18:45 Last Infusion: 09/05/23 19:04 Dose: 0 mls/hr Documented By: Admin: 09/05/23 18:00 Dose: 100 mls/hr Documented By: GELY Sodium Chloride (Nss) 500 mls @ 999 mls/hr IV .Q31M ONE Stop: 09/05/23 18:16 Last Infusion: 09/05/23 18:31 Dose: 0 mls/hr Documented By: Admin: 09/05/23 18:00 Dose: 999 mls/hr Documented By: GELY Piperacillin Sod/Tazobactam Sod (Zosyn) 4.5 gm in 100 mls @ 200 mls/hr IV NOW ONE Stop: 09/05/23 18:50 Last Infusion: 09/05/23 20:25 Dose: 0 mls/hr Documented By: Admin: 09/05/23 19:40 Dose: 200 mls/hr Documented By: JESUS Ioversol (Optiray 320 100ml) 92 ml IV ONCE ONE Stop: 09/05/23 17:23 Last Admin: 09/05/23 17:15 Dose: 92 ml Documented By: RUBI Ondansetron HCl (Ondansetron Inj 2 Mg/Ml 2 Ml Vial) 4 mg IV NOW STA Stop: 09/05/23 18:36 Last Admin: 09/05/23 19:51 Dose: 4 mg Documented By: JESUS Imaging Data Radiologist's Impression: Abdomen/Pelvis CT 09/05/23 16:[address] WITH IV CONTRAST CT DOSE: 1523.97 mGy.cm HISTORY: Acute upper abdominal pain in a patient with recent cholecystectomy recent GB surg, bilat LQ pain, WBC elevation TECHNIQUE: Multiaxial CT images of the abdomen and pelvis were performed following the IV administration of 92 cc of Optiray, A dose lowering technique was utilized adhering to the principles of ALARA. COMPARISON STUDY: 07/23/2019. FINDINGS: Subcarinal lymph nodes measure up to 9 mm. Mild bibasilar atelectasis. No free air. Unremarkable spleen, pancreas and adrenal glands. There are a few small scattered bilateral renal cysts. There are 2 subadjacent nonobstructing calculi within the inferior pole right kidney measuring up to 4 mm. No hydronephrosis. Urinary bladder wall thickening with partial distention. Perivascular stranding. A 4 mm calcification is noted anterior to the urinary bladder on image 355. Hysterectomy. Unremarkable abdominal aorta. Periportal/pericaval lymphadenopathy measures up to 2.9 x 1.1 cm. Mild dilation of the common bile duct measures up to 9 mm. Cholecystectomy clips are present. Inflammatory stranding within the flaco hepatis tracks along the inferior right hepatic lobe. There is a postoperative fluid collection tracking along the inferior aspect of the flaco hepatis along the inferior right hepatic lobe measuring up to 10.6 x 5.6 x 7.9 cm. Mild wall thickening enhancement of the common bile duct. Small volume of ascites. Colonic diverticulosis. Normal appendix. No small bowel obstruction. Ventral abdominal wall herniorrhaphy. Postoperative changes of anterior abdominal wall. No acute fracture. IMPRESSION: 1. Postoperative changes of recent laparoscopic cholecystectomy. There is a postoperative fluid collection in the inferior flaco hepatis tracking along the right hepatic lobe measuring up to 10 cm. Infection cannot be excluded by imaging alone. Correlation can be made with nuclear medicine hepatic biliary scan to exclude a bile leak. 2. Mild common bile duct dilation with mild wall thickening and enhancement. Correlate with laboratory analysis in order to exclude cholangitis. 3. Mild likely reactive periportal/pericaval lymphadenopathy. 4. No bowel obstruction. 5. Small volume of abdominal ascites. 6. Right nephrolithiasis. 7. Additional findings as above. ACT 112: Negative or not required by law. The above report was generated using voice recognition software. It may contain grammatical, syntax or spelling errors. Electronically signed by: Ranjan Schmitz M.D. 09/05/2023 6:17 PM Venous Doppler Study 09/05/23 19:22 CR Exam(s): US VENOUS BILATERAL LOWER EXTREMITIES EXAM: US Duplex Bilateral Lower Extremities Veins CLINICAL HISTORY: Reason for exam: calf caitlin; assess for DVT. TECHNIQUE: Real-time duplex ultrasound scan of the bilateral lower extremity veins integrating B-mode two-dimensional vascular structure, Doppler spectral analysis, color flow Doppler imaging and compression. COMPARISON: 03/25/2019. FINDINGS: Right deep veins: There are internal echoes with absent compressibility and no flow identified within the right peroneal veins. No DVT in the right common femoral, femoral, proximal deep femoral or popliteal veins. The veins demonstrate normal color flow, are normally compressible, with normal phasic flow and/or augmentation response. Right superficial veins: Unremarkable. No thrombus in the visualized right great saphenous vein. Left deep veins: There are internal echoes with absent compressibility and no flow identified within 1 of the left-sided peroneal veins. No DVT in the left common femoral, femoral, proximal deep femoral or popliteal veins. The veins demonstrate normal color flow, are normally compressible, with normal phasic flow and/or augmentation response. Left superficial veins: Unremarkable. No thrombus in the visualized left great saphenous vein. Soft tissues: Nonspecific edema in the bilateral calf region. No popliteal cyst. IMPRESSION: 1. Deep venous thrombosis involving the right-sided peroneal vein and within 1 of the left-sided peroneal vein. 2. No deep venous thrombosis seen bilaterally from the common femoral vein to the popliteal vein. Communications: Call Doctor Other Electronically signed by: Annamaria Hagan MD 09/05/23 22:08 PM Discharge Plan Visit Data Chief Complaint: Flank Pain Stated Complaint: FLANK PAIN,EDEMA,BRUISING,DOC REF,SURG Sunday ED Provider: Bethel Perry Discharge Problem: Acute postoperative abdominal pain, Leukocytosis, Acute hypokalemia, Bile leak, postoperative Patient Disposition: Admitted As Inpatient Discharge Instructions Interventions: ED Discharge Assessment Last Done: 09/05/23 21:58
[2023-09-05] MEDS ORDERED: SODIUM CHLORIDE 0.9% 1,000 ML IV SCH (18:00)
--- NOTE | 2023-09-05 18:19 | CT Scan Report ---
ABDOMEN AND PELVIS CT WITH IV CONTRAST CT DOSE: 1523.97 mGy.cm HISTORY: Acute upper abdominal pain in a patient with recent cholecystectomy recent GB surg, bilat L Q pain, WBC elevation TECHNIQUE: Multiaxial CT images of the abdomen and pelvis were performed following the IV administrat ion of 92 cc of Optiray, A dose lowering technique was utilized adhering to the principles of ALARA. COMPARISON STUDY: 07/23/2019. FINDINGS: Subcarinal lymph nodes measure up to 9 mm. Mild bibasilar atelectasis. No free air. Unremar kable spleen, pancreas and adrenal glands. There are a few small scattered bilateral renal cysts. The re are 2 subadjacent nonobstructing calculi within the inferior pole right kidney measuring up to 4 m m. No hydronephrosis. Urinary bladder wall thickening with partial distention. Perivascular stranding . A 4 mm calcification is noted anterior to the urinary bladder on image 355. Hysterectomy. Unremarka ble abdominal aorta. Periportal/pericaval lymphadenopathy measures up to 2.9 x 1.1 cm. Mild dilation of the common bile duct measures up to 9 mm. Cholecystectomy clips are present. Inflamm atory stranding within the flaco hepatis tracks along the inferior right hepatic lobe. There is a pos toperative fluid collection tracking along the inferior aspect of the flaco hepatis along the inferio r right hepatic lobe measuring up to 10.6 x 5.6 x 7.9 cm. Mild wall thickening enhancement of the com mon bile duct. Small volume of ascites. Colonic diverticulosis. Normal appendix. No small bowel obstr uction. Ventral abdominal wall herniorrhaphy. Postoperative changes of anterior abdominal wall. No ac mentasta fracture. IMPRESSION: 1. Postoperative changes of recent laparoscopic cholecystectomy. There is a postoperative fluid colle ction in the inferior flaco hepatis tracking along the right hepatic lobe measuring up to 10 cm. Infe ction cannot be excluded by imaging alone. Correlation can be made with nuclear medicine hepatic bili bonnie scan to exclude a bile leak. 2. Mild common bile duct dilation with mild wall thickening and enhancement. Correlate with laborator y analysis in order to exclude cholangitis. 3. Mild likely reactive periportal/pericaval lymphadenopathy. 4. No bowel obstruction. 5. Small volume of abdominal ascites. 6. Right nephrolithiasis. 7. Additional findings as above. ACT 112: Negative or not required by law. The above report was generated using voice recognition software. It may contain grammatical, syntax o r spelling errors. Electronically signed by: Ranjan Schmitz M.D. 09/05/2023 6:17 PM
[2023-09-05] MEDS ORDERED: PIPERACILLIN/TAZOBACTAM 4.5 GM/100 ML BAG IV ONE (18:21)
[2023-09-05] MEDS ORDERED: ONDANSETRON INJ 2 MG/ML 2 ML VIAL IV STA (18:35)
[2023-09-05] MEDS ORDERED: HYDROmorphone INJ 0.5 MG/0.5 ML SYR IV PRN ×2 (18:35→19:22)
--- NOTE | 2023-09-05 19:22 | History & Physical Report ---
Date of Service September 05, 2023 Assessment & Plan (1) Acute postoperative abdominal pain: Plan: Due to the patient's clinical presentation, recent postoperative state, and findings on labs she will be admitted to the hospital proceeding as follows: Analgesia will be provided Antiemetics to be provided We will hydrate with IV fluids N.p.o. status will be implemented The patient is noted to have hypokalemia. The treating emergency room physician has ordered 10 mEq of intravenous potassium. I feel additional supplementation will be required so I will order an additional 10 mEq of IV potassium x2 doses. Serial labs will be followed Due to the patient's elevated LFTs and fluid collection noted on the CT scan we will check a HIDA scan to evaluate for a bile leak. If a bile leak is noted to be present we will enlist the help of gastroenterology as she will likely need ERCP if this is the case. I did discuss with the patient other etiologies of her fluid collection could include a postoperative hematoma (I feel this is less likely as she has a normal hemoglobin and hematocrit), postoperative abscess (but in the absence of fever I think this is less likely), or seroma Antibiotics in form of Zosyn have been initiated by the treating emergency room physician and this will continue The patient does have a history of DVT and due to her calf pain we will check bilateral lower extremity venous ultrasounds. If she does have DVTs we will act accordingly, but for the present time I would prefer to hold her Eliquis until w ascertain whether or not she require any procedural intervention due to the postoperative fluid collection noted on CT scan Additional recommendations be forthcoming based on her clinical course as unfolds She will be a level 1 full code Addendum (10:00 pm) Results of patient's lower extremity venous ultrasound have been obtained. The patient is noted to have bilateral DVTs in the perineal region. These results were discussed with the patient and I did discuss with her her dosing of Eliquis. As noted the patient did resume her Eliquis with the evening dose on 09/04/2023. She also took her morning dose this morning which was 09/05/2023. As it is unclear at this point if the patient will require any procedural intervention we will continue to hold her Eliquis however we will place her on a heparin drip utilizing weight-based heparin with no bolus. I did discuss with the pharmacist appropriate timing of initiation of this heparin drip and they note that it would be appropriate to order it this evening as patient has not yet taken her evening dose of Eliquis. In addition, we will keep the patient on bedrest until we are able to fully anticoagulate her. This plan was also discussed with the patient's nurse. Addendum (12:35 AM) I was contacted by RN that patient continues to complain of right upper quadrant abdominal pain. The patient was revisited at bedside. Her abdominal exam remains unchanged: Abdomen is rotund with minimal distention but there is pain with palpation in the right upper quadrant. Repeat CBC was performed which shows white blood cell count is 12.5. Hemoglobin and hematocrit are 13.2 and 39.3 respectively. (At time of admission hemoglobin was 15.8 and hematocrit was 39.3I suspect these admission values were on the high side due to dehydration as patient has not had much in the way of oral intake over the past several days in the decrease in subsequent values are in some part due to hemodilution from intravenous fluids. The repeat values are within the normal range for this laboratory, thus I do not suspect active bleeding in the abdomen at this time.) Adjustments were made in patient's pain medication regimen. I discussed the case with my attending physician Dr. Hickey and no new recommendations were made. We will await the results of patient's HIDA scan with further actions to follow based on these results. Addendum (5:30 AM) I discussed the case further with my attending physician, Dr. Matthew Hickey. Anticipation of HIDA scan and potential gastroenterology procedure we will place the patient's heparin drip on hold at approximately 6:00 AM on 09/06/2023. In addition we will check a.m. labs. History of Present Illness Chief Complaint: Abdominal pain Primary Care Provider: Davion Alvarado PA-C This is a 53-year-old female who underwent a laparoscopic cholecystectomy by Dr. Ugarte of [facility] General surgery on 08/31/2023. The patient notes that she was discharged home the same day as her surgery. Patient notes that since being home from her surgery she has had persistent right upper quadrant abdominal pain and has had very little oral intake as she has just not had much of an appetite. She notes that over the ensuing timeframe since being discharged home up until today the right upper quadrant pain has been persistent and has gotten much worse. She has not had any nausea or vomiting. She denies any fevers, shakes, or chills. Concerning the pain she says it is nonradiating and she denies any palliative factors. She notes that it is worse with movement. She does note that she has had a bowel movement within the past 24 hours. Because of the ongoing nature of the pain she presented to the emergency department. 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 She notes that postoperatively she did resume her Eliquis with the evening dose on 09/04/2023 which was last evening. The patient's most recent lower extremity ultrasound available for my review was on 02/24/2022 where the patient did not have any evidence of DVT bilaterally. Patient does note that she has had chronic lower extremity pain Since arrival to the hospital the patient has had labs and imaging which I independent reviewed. CT scan abdomen pelvis showed that she had postoperative changes consistent with a laparoscopic cholecystectomy. Patient was noted have a postoperative fluid collection in the inferior flaco hepatis region along the right hepatic lobe which measured approximate 10 cm. There is mild common bile duct dilatation. Small volume of abdominal ascites was noted but no small bowel obstruction was noted Labs include a CBC her white blood cell count was elevated at 16.8. Her hemoglobin and hematocrit along with her platelet count were normal. Her INR is 1.1. Chemistry profile showed sodium was normal. Her BUN and creatinine were both normal. Her potassium is low at 3.1. Patient did have an elevated total bilirubin at 1.8 and elevated transaminases with an AST of 77 and ALT of 89. Her alkaline phosphatase was not elevated. Troponin was not elevated and lipase was within normal range. Urinalysis was not indicative of infection. At the time of my interview the patient was resting comfortably in bed and she was in no distress Allergies Allergy/AdvReac Type Severity Reaction Status Date / Time chlorhexidine Allergy Intermediate swelling, Verified 08/31/23 05:59 pain, redness, itchy at incision sites nortriptyline Allergy Intermediate Tachycardia Verified 08/31/23 05:59 oxycodone AdvReac Mild Flushing Verified 08/31/23 14:07 Home Medications Medication Instructions Recorded Confirmed Type docusate sodium 100 mg capsule 100 mg PO DAILY PRN Constipation 02/27/19 09/05/23 History (Stool Softener) multivitamin 1 tab PO QAM 02/27/19 09/05/23 History tizanidine 2 mg tablet 2 mg PO HS 02/27/19 09/05/23 History lisinopril 2.5 mg tablet 2.5 mg PO QAM 07/18/19 09/05/23 History torsemide 20 mg tablet 20 mg PO QAM 07/18/19 09/05/23 History magnesium chloride 64 mg 64 mg PO QAM 07/22/20 09/05/23 History tablet,extended release melatonin 3 mg capsule 6 mg PO HS PRN Sleep 07/22/20 09/05/23 History sumatriptan succinate 100 mg tablet 100 mg PO .COMPLEX PRN migraine 07/22/20 09/05/23 Rx headache 30 days #9 tabs vitamin B complex 1 tab PO QAM 07/22/20 09/05/23 History cholecalciferol (vitamin D3) 50 2,000 unit PO QAM 02/03/21 09/05/23 History mcg (2,000 unit) capsule levothyroxine 100 mcg tablet 100 mcg PO QAM 12/19/21 09/05/23 History apixaban 5 mg tablet (Eliquis) 5 mg PO BID #60 tabs 12/08/22 09/05/23 Rx vitamins A,C,F-vmbs-bsfyso 2,148 1 tab PO QAM 08/22/23 09/05/23 History mcg-113 mg-45 mg-17.4 mg tablet (PreserVision AREDS) zinc 1 tab PO QAM PRN Other 08/22/23 09/05/23 History zolpidem 6.25 mg tablet,extended 6.25 mg PO HS PRN Sleep 08/22/23 09/05/23 History release,multiphase (Ambien CR) hydrocodone 5 mg-acetaminophen 325 1 - 2 tab PO .[id number] PRN pain #15 08/31/23 09/05/23 Rx mg tablet tabs acetaminophen 500 mg tablet 500 mg PO Q8H PRN Pain 09/05/23 09/05/23 History betamethasone, augmented 0.05 % 1 applic topical BID PRN Rash 09/05/23 09/05/23 History topical cream omeprazole 20 mg capsule,delayed 20 mg PO QAM PRN Heartburn 09/05/23 09/05/23 History release Past Med/Surg History Medical History Deep vein thrombosis (DVT) associated with COVID-19 2020 (after COVID), taking Eliquis Edema of right lower extremity GERD (gastroesophageal reflux disease) History of COVID-19 2020- Developed DVT 08/2022 Hypothyroidism Migraine Mitral regurgitation Echo 2012: Mild MR. Anatomically normal MV without prolapse. Peptic ulcer disease Hx Thyroid nodule Under surveillance Surgical History History of adenoidectomy History of anterior colporrhaphy repair of cystocele History of bladder surgery Bladder tack History of colonoscopy History of esophagogastroduodenoscopy (EGD) History of herniorrhaphy INGUINAL HERNIA History of hysterectomy Lap Total History of hysteroscopy with endometrial ablation, and resection for intrauterine polyp removal. History of oral surgery tooth extraction History of salpingo-oophorectomy History of tonsillectomy History of tubal ligation Hx laparoscopic cholecystectomy (08/31/23) Laparoscopic Cholecystectomy and Intra-Abdominal Exploration, Lysis of Adhesions(Not Applicable) - Renata Sandoval, S/P laparoscopic hernia repair 2019 Lap incisional hernia repair x3 + DURGA Family History Father Family history of diabetes mellitus Mother Breast cancer age 74 Aunt Ovarian cancer Paternal Grandfather (Paternal) Prostate cancer Other Diabetes Heart disease No family history of adverse response to anesthesia Denies family history of Colorectal cancer Social History Smoking Status: Never smoker Second Hand Exposure: No; Do You Dip or Chew Tobacco: No; Hx Alcohol Use: Yes Alcohol type: wine Hx Substance Use: No Preferred Language: Estonian Communication Ability: Effective Visual Impairment: Partially Limited Change House Attendant Required: No Beliefs That Will Affect Care: None marital status: Current Living Situation: Spouse current occupational status: employed current occupation: [employer] How many Children do You have: 3 Other Information That Helps Us Care for You: No Feels Safe at Home: Yes Safety Concerns: Feels Safe At This Time Diet: regular during the past year weight has: remained stable Assistive Devices: Glasses Review of Systems Constitutional: no fever and no chills Eyes: + corrective lenses Ear, Nose, Mouth, Throat: no ear pain Respiratory: no cough and no dyspnea Cardiovascular: no chest pain Gastrointestinal: as per Subjective / HPI Genitourinary: no dysuria Musculoskeletal: no back pain Integumentary: no rash Neurologic: no localized weakness Physical Exam Constitutional: WD/WN, vitals as above Eyes: + anicteric sclerae Wears glasses ENMT: Ears: no hearing impairment and no external ear abnormality Sublingual jaundice is absent Neck: trachea midline Respiratory: normal respiratory effort; no respiratory distress and no labored breathing Breath sounds are decreased at the bases as deep inspiration attempts to cause right upper quadrant abdominal pain Cardiovascular: Rate/Rhythm: regular rate and regular rhythm Vessels: do rsalis pedis pulses present and radial pulses present Gastrointestinal (Abdomen): Patient is for laparoscopic incisions consistent with previous cholecystectomy. There is a small amount of erythema on each incision but the incisions are overall intact, clean, and dry. There is no drainage from the incisions. Patient's abdomen is rotund with minimal distention. There is pain with palpation in the right upper quadrant with some rebound tenderness. Musculoskeletal: Positive calf tenderness noted of the right lower extremity Skin: no rashes Neurologic: moves all extremities Psychiatric: A+Ox3, euthymic affect Results & Data Results & Data Vital Signs (Past 12 Hours) Vital Signs Temp Pulse Pulse Resp BP BP Pulse Ox 09/05/23 19:02 89 25 H 191/109 H 97 09/05/23 17:30 86 20 150/69 H 96 09/05/23 17:24 89 21 142/96 H 98 09/05/23 16:30 86 09/05/23 16:16 97 09/05/23 14:25 36.4 C L 94 H 20 155/87 H 96 O2 Del Method 09/05/23 19:02 Room Air 09/05/23 17:30 09/05/23 17:24 09/05/23 16:30 09/05/23 16:16 Room Air 09/05/23 14:25 Room Air Supervising Physician Co-Signing Physician Notes I personally saw and evaluated the patient with Michael Arana PA-C and agree with the assessment and plan. 53-year-old female status post laparoscopic cholecystectomy here with gallbladder fossa fluid collection concerning for bile leak Her CT images and results were personally viewed interpreted by myself She will be admitted to the surgical service, kept n.p.o. and given IV antibiotics HIDA scan will be ordered to rule out a bile leak Further recommendations pending HIDA scan PG Care Time/CCT Total # of Minutes Spent Total Time Spent with Patient: Total time spent is greater than 50% in coordination of care (as documented) at patient's floor/unit and/or counseling patient: Coding Level of Care Code None Diagnoses Acute postoperative abdominal pain G89.18; R10.9
[2023-09-05] MEDS: SODIUM CHLORIDE 0.9% 1,000 ML IV SCH (19:51)
[2023-09-05] MEDS ORDERED: SUMAtriptan succinate 100 MG TAB PO PRN (21:48)
[2023-09-05] MEDS ORDERED: BETAMETHASONE DIP AUG (DIPROLENE) 0.05% CR 50 GM TUBE EXT PRN (21:48)
--- NOTE | 2023-09-05 22:09 | Ultrasound Report ---
Exam(s): US VENOUS BILATERAL LOWER EXTREMITIES EXAM: US Duplex Bilateral Lower Extremities Veins CLINICAL HISTORY: Reason for exam: calf caitlin; assess for DVT. TECHNIQUE: Real-time duplex ultrasound scan of the bilateral lower extremity veins integrating B-mode two-dimensional vascular structure, Doppler spectral analysis, color flow Doppler imaging and compression. COMPARISON: 03/25/2019. FINDINGS: Right deep veins: There are internal echoes with absent compressibility and no flow identified within the right peroneal veins. No DVT in the right common femoral, femoral, proximal deep femoral or popliteal veins. The veins demonstrate normal color flow, are normally compressible, with normal phasic flow and/or augmentation response. Right superficial veins: Unremarkable. No thrombus in the visualized right great saphenous vein. Left deep veins: There are internal echoes with absent compressibility and no flow identified within 1 of the left-sided peroneal veins. No DVT in the left common femoral, femoral, proximal deep femoral or popliteal veins. The veins demonstrate normal color flow, are normally compressible, with normal phasic flow and/or augmentation response. Left superficial veins: Unremarkable. No thrombus in the visualized left great saphenous vein. Soft tissues: Nonspecific edema in the bilateral calf region. No popliteal cyst. IMPRESSION: 1. Deep venous thrombosis involving the right-sided peroneal vein and within 1 of the left-sided peroneal vein. 2. No deep venous thrombosis seen bilaterally from the common femoral vein to the popliteal vein. Communications: Call Doctor Other Electronically signed by: Annamaria Hagan MD 09/05/23 22:08 PM
[2023-09-05] MEDS ORDERED: Heparin IV Adult Wt-Based Standard *NO* Bolus Protocol IV STA (22:50)
[2023-09-05] MEDS: tiZANidine HCL 4 MG TABLET PO SCH (22:53)
[2023-09-05] MEDS: POTASSIUM CHLORIDE / WTR 10 MEQ/100 ML PLCT IV SCH (23:15)
[2023-09-05] MEDS: ACETAMINOPHEN 1,000 MG/100 ML VIAL IV PRN (23:51)
[2023-09-06] MEDS: HEPARIN SODIUM/DEXTROSE 25,000 UNITS/500 ML BAG IV SCH (00:16)
[2023-09-06] MEDS: PIPERACILLIN/TAZOBACTAM 4.5 GM in DEXTROSE 5% MINI-B 100 ML IV SCH ×4 (00:21→23:58)
[2023-09-06] MEDS ORDERED: HYDROmorphone INJ 0.5 MG/0.5 ML SYR IV STA (00:42)
[2023-09-06] MEDS: HYDROmorphone INJ 0.5 MG/0.5 ML SYR IV PRN ×8 (00:57→23:59)
[2023-09-06] MEDS: MELATONIN 3 MG TAB PO PRN (01:01)
[2023-09-06 01:39] LABS: Basophils # (auto) 0.06 K/uL (0.00-0.20); Basophils % (auto) 0.5 %; Eosinophils # (auto) 0.41 K/uL (0.00-0.50); Eosinophils % (auto) 3.3 %; Hematocrit (blood only) 39.3 % (37.0-47.0); Hemoglobin 13.2 g/dl (12.0-16.0); Immature Granulocytes # (auto) 0.17 K/uL (0.01-0.20); Immature Granulocytes % (auto) 1.4 %; Lymphocytes # (auto) 1.44 K/uL (1.20-3.40); Lymphocytes % (auto) 11.4 %; Mean Corpuscular Hemoglobin 29.9 pg (25.0-34.0); Mean Corpuscular Hgb Conc 33.6 g/dL (32.0-36.0); Mean Corpuscular Volume 88.9 fL (80.0-100.0); Mean Platelet Volume 10.6 fL (9.4-12.4); Monocytes # (auto) 0.95 K/uL (0.11-0.59); Monocytes % (auto) 7.6 %; Neutrophils # (auto) 9.55 K/uL (1.40-6.50); Neutrophils % (auto) 75.8 %; Platelet Count 281 K/uL (130-400); RDW Standard Deviation 42.5 fL (36.4-46.3); Red Blood Count 4.42 M/uL (4.20-5.40); White Blood Count 12.58 K/ul (4.8-10.8)
[2023-09-06] MEDS: POTASSIUM CHLORIDE / WTR 10 MEQ/100 ML PLCT IV SCH (03:45)
[2023-09-06] MEDS: SODIUM CHLORIDE 0.9% 1,000 ML IV SCH ×3 (04:56→18:38)
[2023-09-06 05:48] LABS: Basophils # (auto) 0.08 K/uL (0.00-0.20); Basophils % (auto) 0.7 %; Eosinophils # (auto) 0.51 K/uL (0.00-0.50); Eosinophils % (auto) 4.3 %; Hematocrit (blood only) 39.4 % (37.0-47.0); Hemoglobin 13.2 g/dl (12.0-16.0); Immature Granulocytes # (auto) 0.18 K/uL (0.01-0.20); Immature Granulocytes % (auto) 1.5 %; Lymphocytes # (auto) 1.59 K/uL (1.20-3.40); Lymphocytes % (auto) 13.3 %; Mean Corpuscular Hemoglobin 29.9 pg (25.0-34.0); Mean Corpuscular Hgb Conc 33.5 g/dL (32.0-36.0); Mean Corpuscular Volume 89.1 fL (80.0-100.0); Mean Platelet Volume 10.8 fL (9.4-12.4); Monocytes # (auto) 1.04 K/uL (0.11-0.59); Monocytes % (auto) 8.7 %; Neutrophils # (auto) 8.53 K/uL (1.40-6.50); Neutrophils % (auto) 71.5 %; Platelet Count 268 K/uL (130-400); RDW Coefficient of Variation 13.1 % (11.5-14.5); RDW Standard Deviation 42.9 fL (36.4-46.3); Red Blood Count 4.42 M/uL (4.20-5.40); White Blood Count 11.93 K/ul (4.8-10.8)
[2023-09-06 06:17] LABS: Alanine Aminotransferase 71 U/L (7-52); Albumin Globulin Ratio 1.3 (0.9-2); Albumin Level 3.2 gm/dl (3.4-5.0); Alkaline Phosphatase 73 U/L (34-104); Anion Gap 8 (3-11); BUN Creatinine Ratio 21.9 (10-20); Bilirubin,Total 1.4 mg/dl (0.2-1.0); Blood Urea Nitrogen 14 mg/dl (6-23); Calcium 8.5 mg/dl (8.6-10.3); Carbon Dioxide 26 mmol/L (21-32); Chloride 105 mmol/L (98-107); Creatinine Clr Calc Pharmacy 107.2 ml/min; Est GFR (African American) 117.3 ml/min; Est GFR (Non-African American) 101.2 ml/min; Globulin 2.5 gm/dl (2.5-4.0); Glucose 125 mg/dl (70-99(Fasting)); Lipase 50 U/L (11-82); Sodium 139 mmol/L (136-145); Total Protein 5.7 gm/dl (6.0-8.3)
[2023-09-06 06:24] LABS: Partial Thromboplastin Ratio 1.4; Partial Thromboplastin Time 39.4 Seconds (21.0-31.0)
[2023-09-06] MEDS: LEVOTHYROXINE SODIUM 100 MCG TABLET PO SCH (06:54)
[2023-09-06 07:53] LABS: Potassium 3.3 mmol/L (3.5-5.1)
[2023-09-06] MEDS: lisinopril 2.5 MG TAB PO SCH (08:26)
--- NOTE | 2023-09-06 10:56 | Nuclear Medicine Report ---
NM hepatobiliary CLINICAL HISTORY: 53 years-old Female with s/p lap manish; assess for bile leak. Follow-up study in a patient with cholecystectomy and postoperative fluid collection TECHNIQUE: Sequential anterior abdominal images were obtained through 60 minutes following the intra venous administration of 5.5 mCi of technetium-99m Choletec. COMPARISON: CT 09/05/2023 FINDINGS: There is prompt, uniform accumulation of the tracer by the liver. There is normal filling of the int rahepatic ducts and common bile duct. There is no excretion of the tracer into the duodenum. The gal lbladder is surgically absent. There is prominent spilling of radiotracer along the inferior right he patic lobe in the region of the previously described postoperative fluid collection. IMPRESSION: Cholecystectomy with postoperative bile leak. ACT 112: Negative or not required by law. The above report was generated using voice recognition software. It may contain grammatical, syntax o r spelling errors. Electronically signed by: Ranjan Schmitz M.D. 09/06/2023 10:53 AM
[2023-09-06] MEDS: diphenhydrAMINE 50 MG/ML VIAL IV PRN ×2 (11:09→22:14)
[2023-09-06] MEDS: ACETAMINOPHEN 1,000 MG/100 ML VIAL IV PRN ×2 (11:09→19:46)
--- NOTE | 2023-09-06 11:46 | Gastrointestinal Consultation ---
Date of Consultation September 06, 2023 Assessment & Plan (1) Bile leak, postoperative: Plan ERCP this afternoon by Dr. Bernabe. Continue analgesics, IV fluids, NPO and please continue to hold Eliquis and heparin. Further recommendations to follow ERCP. History of Present Illness Reason for Consultation: h/o lap manish, concern for bile leak Requesting Physician: Vibha Lock PA-C (surgery) Attending Physician: Matthew Hickey, DO History of Present Illness Ms. Venus Handy is a 53 yr old female pt of Davion Allred PA-C w a hx of DVT on Eliquis who underwent Lap Choley by Dr. Sandoval on 08/31/23. The pt presented to the ED this morning for RUQ pain that has been present and worsening since the choley. On arrival, HIDA w Cholecystectomy with postoperative bile leak. She is NPO. She is maintained on Eliquis for DVTs, US w current Rt peroneal DVT. Eliquis was stopped for Lap choley, took a dose on 09/04 at 9PM and on 09/03 at 9AM, then held. On arrival, a heparin drip was started but has been held since 11PM last n ight. Venus works as a [employer] on [employer] here at [employer]. Allergies Allergy/AdvReac Type Severity Reaction Status Date / Time chlorhexidine Allergy Intermediate swelling, Verified 08/31/23 05:59 pain, redness, itchy at incision sites nortriptyline Allergy Intermediate Tachycardia Verified 08/31/23 05:59 oxycodone AdvReac Mild Flushing Verified 08/31/23 14:07 Home Medications Medication Instructions Recorded Confirmed Type docusate sodium 100 mg capsule 100 mg PO DAILY PRN Constipation 02/27/19 09/05/23 History (Stool Softener) multivitamin 1 tab PO QAM 02/27/19 09/05/23 History tizanidine 2 mg tablet 2 mg PO HS 02/27/19 09/05/23 History lisinopril 2.5 mg tablet 2.5 mg PO QAM 07/18/19 09/05/23 History torsemide 20 mg tablet 20 mg PO QAM 07/18/19 09/05/23 History magnesium chloride 64 mg 64 mg PO QAM 07/22/20 09/05/23 History tablet,extended release melatonin 3 mg capsule 6 mg PO HS PRN Sleep 07/22/20 09/05/23 History sumatriptan succinate 100 mg tablet 100 mg PO .COMPLEX PRN migraine 07/22/20 09/05/23 Rx headache 30 days #9 tabs vitamin B complex 1 tab PO QAM 07/22/20 09/05/23 History cholecalciferol (vitamin D3) 50 2,000 unit PO QAM 02/03/21 09/05/23 History mcg (2,000 unit) capsule levothyroxine 100 mcg tablet 100 mcg PO QAM 12/19/21 09/05/23 History apixaban 5 mg tablet (Eliquis) 5 mg PO BID #60 tabs 12/08/22 09/05/23 Rx vitamins A,C,G-ibbt-heakif 2,148 1 tab PO QAM 08/22/23 09/05/23 History mcg-113 mg-45 mg-17.4 mg tablet (PreserVision AREDS) zinc 1 tab PO QAM PRN Other 08/22/23 09/05/23 History zolpidem 6.25 mg tablet,extended 6.25 mg PO HS PRN Sleep 08/22/23 09/05/23 History release,multiphase (Ambien CR) hydrocodone 5 mg-acetaminophen 325 1 - 2 tab PO .[id number] PRN pain #15 08/31/23 09/05/23 Rx mg tablet tabs acetaminophen 500 mg tablet 500 mg PO Q8H PRN Pain 09/05/23 09/05/23 History betamethasone, augmented 0.05 % 1 applic topical BID PRN Rash 09/05/23 09/05/23 History topical cream omeprazole 20 mg capsule,delayed 20 mg PO QAM PRN Heartburn 09/05/23 09/05/23 History release Patient History Medical History Deep vein thrombosis (DVT) associated with COVID-19 2020 (after COVID), taking Eliquis Edema of right lower extremity GERD (gastroesophageal reflux disease) History of COVID-19 2020- Developed DVT 08/2022 Hypothyroidism Migraine Mitral regurgitation Echo 2012: Mild MR. Anatomically normal MV without prolapse. Peptic ulcer disease Hx Thyroid nodule Under surveillance Surgical History History of adenoidectomy History of anterior colporrhaphy repair of cystocele History of bladder surgery Bladder tack History of colonoscopy History of esophagogastroduodenoscopy (EGD) History of herniorrhaphy INGUINAL HERNIA History of hysterectomy Lap Total History of hysteroscopy with endometrial ablation, and resection for intrauterine polyp removal. History of oral surgery tooth extraction History of salpingo-oophorectomy History of tonsillectomy History of tubal ligation Hx laparoscopic cholecystectomy (08/31/23) Laparoscopic Cholecystectomy and Intra-Abdominal Exploration, Lysis of Adhesions(Not Applicable) - Renata Sandoval DO S/P laparoscopic hernia repair 2019 Lap incisional hernia repair x3 + DURGA Family History Father Family history of diabetes mellitus Mother Breast cancer age 74 Aunt Ovarian cancer Paternal Grandfather (Paternal) Prostate cancer Other Diabetes Heart disease No family history of adverse response to anesthesia Denies family history of Colorectal cancer Social History Smoking Status: Never smoker Second Hand Exposure: No; Do You Dip or Chew Tobacco: No; Hx Alcohol Use: Yes Alcohol type: wine Hx Substance Use: No Preferred Language: Uzbek Communication Ability: Effective Visual Impairment: Partially Limited Clinical Nurse Educator Required: No Beliefs That Will Affect Care: None marital status: Current Living Situation: Spouse current occupational status: employed current occupation: [employer] How many Children do You have: 3 Other Information That Helps Us Care for You: No Feels Safe at Home: Yes Safety Concerns: Feels Safe At This Time Diet: regular during the past year weight has: remained stable Assistive Devices: Glasses Review of Systems Review of Systems: ROS: Gen: Denies weakness, fevers, weight loss Eyes: No eye redness, or pain, no recent vision changes Resp: No SOB, no cough Cardio: No palpitations/irregular beats, no chest pain; mild bilat lower leg edema is chronic - unchanged. GI: As per HPI, otherwise (-) : Denies pain on urination Skin: No jaundice, itching or new rashes Physical Exam Constitutional: WD/WN, vitals as above Eyes: PERRL, conjunctivae normal, anicteric sclerae ENMT: external ear and nose normal, oropharynx normal Neck: trachea midline, no thyromegaly Respiratory: normal respiratory effort, lungs clear to auscultation Cardiovascular: Heart Sounds: normal S1 and normal S2; no murmur Gastrointestinal (Abdomen): diffusely very tender upper abd, no distention, soft, hypoactive BS Skin: no rashes, warm and dry Neurologic: patellar DTR's 2+ bilat, sensation intact Psychiatric: A+Ox3, euthymic affect Lymphatic: no cervical or axillary lymphadenopathy Results & Data Vital Signs (Past 12 Hours) Vital Signs Temp Pulse Resp BP Pulse Ox O2 Del Method 09/06/23 07:48 36.8 C 95 H 14 163/80 H 94 Room Air Laboratory Results WBC 11, Hb 13, Hct 39, Plts 268, PT 39, INR 1.4, Na 139, K 3.3, BUN 14, Cr 0.6, glucose 125. T Bili 1.4, AAST 54, ALT 71, Alk Phos 73 Diagnostic Findings HIDA today: Cholecystectomy with postoperative bile leak. CTAP w IV 09/05/23: 1. Postoperative changes of recent laparoscopic cholecystectomy. There is a postoperative fluid collection in the inferior flaco hepatis tracking along the right hepatic lobe measuring up to 10 cm. Infection cannot be excluded by imaging alone. Correlation can be made with nuclear medicine hepatic biliary scan to exclude a bile leak. 2. Mild common bile duct dilation with mild wall thickening and enhancement. Correlate with laboratory analysis in order to exclude cholangitis. 3. Mild likely reactive periportal/pericaval lymphadenopathy. 4. No bowel obstruction. 5. Small volume of abdominal ascites. 6. Right nephrolithiasis. Bilat VDUS 09/05/23: 1. Deep venous thrombosis involving the right-sided peroneal vein and within 1 of the left-sided peroneal vein. 2. No deep venous thrombosis seen bilaterally from the common femoral vein to the popliteal vein.
--- NOTE | 2023-09-06 12:04 | Surgery Progress Note ---
Date of Service September 06, 2023 Assessment & Plan (1) Bile leak, postoperative: Plan: pt is here with h/o lap manish, here with concern for bile leak HIDA scan obtained today confirmed + bile leak WBC 11.9 (16), Tb 1.4, AST 54, ALT 71 Abdomen tender to palpation in RUQ Plan to consult GI today for consideration of ERCP If performed today, may consider clears after. Continue iv abx Admission and Anticipated Discharge Date Admission Date: September 05, 2023 Supervising Physician Co-Signing Physician Notes I personally saw and evaluated the patient with Vibha Lock PA-C and agree with the assessment and plan. 53-year-old female status post laparoscopic cholecystectomy and postoperative bile leak Her HIDA images and results were personally viewed and interpreted by myself She does have a fluid buildup consistent with a bile leak GIs been consulted and are going to perform an ERCP and stent placement today We will keep her n.p.o. 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 Physical Exam Physical Exam: awake/alert, no distress Respiratory: normal respiratory effort Gastrointestinal (Abdomen): Percussion/Palpation: + abdomen tender (ttp in RUQ) and abdomen soft Results & Data Vital Signs (Past 12 Hours) Vital Signs Temp Pulse Resp BP Pulse Ox O2 Del Method 09/06/23 07:48 36.8 C 95 H 14 163/80 H 94 Room Air PG Care Time/CCT Total # of Minutes Spent Total Time Spent with Patient: Total time spent is greater than 50% in coordination of care (as documented) at patient's floor/unit and/or counseling patient: Coding Level of Care Code None Diagnoses Bile leak, postoperative K91.89; K83.8
[2023-09-06] MEDS ORDERED: LACTATED RINGER'S 1,000 ML IV SCH (15:00)
[2023-09-06] MEDS ORDERED: ePHEDrine sulfate 50 MG/ML AMP IV PRN (15:08)
[2023-09-06] MEDS ORDERED: fentaNYL citrate PF 100 MCG/2 ML VIAL IV PRN (15:08)
[2023-09-06] MEDS ORDERED: HYDROmorphone INJ 1 MG/ML SYRINGE IV PRN (15:08)
[2023-09-06] MEDS ORDERED: PROMETHAZINE HCL 6.25 MG in SODIUM CHLORIDE 0.9% 50 ML IV PRN (15:08)
[2023-09-06] MEDS ORDERED: ATROPINE SULFATE 0.1 MG/ML 10ML SYR IV PRN (15:08)
[2023-09-06] MEDS ORDERED: ONDANSETRON INJ 2 MG/ML 2 ML VIAL IV PRN (15:08)
--- NOTE | 2023-09-06 15:09 | History & Physical Bridge Note ---
Date of Service September 06, 2023 History & Physical Bridge Note I have examined the patient, reviewed the History & Physical and in the interval since the performance of the History & Physical I have noted the following changes of clinical significance: no changes noted EUS + ERCP Patient was explained in detail regarding risks, benefits, limitations and alternatives of the above endoscopic procedure. Risks of intravenous sedation used for procedure were also explained. Risks include, but not limited to per foration, bleeding, infection, respiratory distress, cardiac arrest and . Patient is also aware about the possibility of missed lesion. Patient's questions were answered. The patient verbalized understanding the information and agreed to undergo the procedure.
--- NOTE | 2023-09-06 15:10 | Anesthesiology Consultation ---
Date of Service September 06, 2023 Assessment & Plan (1) Encounter for pre-operative examination: Chart Review Chart Review: Acceptable Risk for Surgery and Patient NOT seen in Pre Admission Testing Consults Requested none History Surgery Operation Date: 09/06/23 15:30 Proposed Procedures p Endoscopic Retrograde Cholangiopancreatogram - Felix Bernabe MD Height/Weight Height: 5 ft 3 in Weight: 90.265 kg Allergies Allergy/AdvReac Type Severity Reaction Status Date / Time chlorhexidine Allergy Intermediate swelling, Verified 08/31/23 05:59 pain, redness, itchy at incision sites nortriptyline Allergy Intermediate Tachycardia Verified 08/31/23 05:59 oxycodone AdvReac Mild Flushing Verified 08/31/23 14:07 Medications Home Medications Medication Instructions Recorded Confirmed Last Taken docusate sodium 100 mg capsule 100 mg PO DAILY PRN Constipation 02/27/19 09/05/23 09/05/23 (Stool Softener) multivitamin 1 tab PO QAM 02/27/19 09/05/23 08/30/23 08:00 tizanidine 2 mg tablet 2 mg PO HS 02/27/19 09/05/23 09/04/23 lisinopril 2.5 mg tablet 2.5 mg PO QAM 07/18/19 09/05/23 09/05/23 torsemide 20 mg tablet 20 mg PO QAM 07/18/19 09/05/23 09/05/23 magnesium chloride 64 mg 64 mg PO QAM 07/22/20 09/05/23 08/30/23 08:00 tablet,extended release melatonin 3 mg capsule 6 mg PO HS PRN Sleep 07/22/20 09/05/23 08/30/23 08:00 sumatriptan succinate 100 mg tablet 100 mg PO .COMPLEX PRN migraine 07/22/20 09/05/23 Unknown headache 30 days #9 tabs vitamin B complex 1 tab PO QAM 07/22/20 09/05/23 08/30/23 08:00 cholecalciferol (vitamin D3) 50 2,000 unit PO QAM 02/03/21 09/05/23 08/30/23 08:00 mcg (2,000 unit) capsule levothyroxine 100 mcg tablet 100 mcg PO QAM 12/19/21 09/05/23 09/05/23 apixaban 5 mg tablet (Eliquis) 5 mg PO BID #60 tabs 12/08/22 09/05/23 08/28/23 20:00 vitamins A,C,G-wppx-rkupic 2,148 1 tab PO QAM 08/22/23 09/05/23 08/30/23 08:00 mcg-113 mg-45 mg-17.4 mg tablet (PreserVision AREDS) zinc 1 tab PO QAM PRN Other 08/22/23 09/05/23 08/30/23 08:00 zolpidem 6.25 mg tablet,extended 6.25 mg PO HS PRN Sleep 08/22/23 09/05/23 08/30/23 08:00 release,multiphase (Ambien CR) hydrocodone 5 mg-acetaminophen 325 1 - 2 tab PO .[id number] PRN pain #15 08/31/23 09/05/23 Unknown mg tablet tabs acetaminophen 500 mg tablet 500 mg PO Q8H PRN Pain 09/05/23 09/05/23 09/05/23 betamethasone, augmented 0.05 % 1 applic topical BID PRN Rash 09/05/23 09/05/23 Unknown topical cream omeprazole 20 mg capsule,delayed 20 mg PO QAM PRN Heartburn 09/05/23 09/05/23 Unknown release Active Medications Generic Name Dose Route Start Last Admin Trade Name Freq PRN Reason Stop Dose Admin Diphenhydramine HCl 12.5 mg 09/06/23 07:09 09/06/23 11:09 Diphenhydramine 50 Mg/Ml Vial IV 10/06/23 07:08 12.5 mg Q6H PRN Administration Itching Hydromorphone HCl 0.5 mg 09/06/23 03:41 09/06/23 12:46 Hydromorphone Inj 0.5 Mg/0.5 Ml Syr IV 09/20/23 03:40 0.5 mg Q3H PRN Administration Pain Sodium Chloride 1,000 mls @ 125 mls/hr 09/05/23 19:30 09/06/23 12:48 Nss IV 10/05/23 19:29 125 mls/hr .Q8H ARLENE Administration Piperacillin Sod/Tazobactam 100 mls @ 25 mls/hr 09/06/23 00:00 09/06/23 12:30 Sod 4.5 gm/ Dextrose IV 09/16/23 00:00 Infused Q8H ARLENE Infusion Protocol Acetaminophen 1,000 mg in 100 mls @ 400 mls/hr 09/05/23 19:22 09/06/23 11:24 Ofirmev IV 09/08/23 19:21 Infused Q8H PRN Infusion Moderate Pain (Scale 4, 5, 6) Heparin Sodium/Dextrose 25,000 units in 500 mls @ 24 mls/hr 09/05/23 23:00 09/06/23 00:16 Heparin Sodium/Dextrose IV 10/05/23 22:59 1,200 units/hr .[id number] ARLENE 24 mls/hr Administration Protocol 1,200 UNITS/HR Levothyroxine Sodium 100 mcg 09/06/23 06:30 09/06/23 06:54 Levothyroxine Sodium 100 Mcg Tablet PO 10/06/23 06:29 100 mcg DAILYBB ARLENE Administration Lisinopril 2.5 mg 09/06/23 09:00 09/06/23 08:26 Lisinopril 2.5 Mg Tab PO 10/06/23 08:59 2.5 mg QAM ARLENE Administration Melatonin 6 mg 09/05/23 21:54 09/06/23 01:01 Melatonin 3 Mg Tab PO 10/05/23 21:53 6 mg HS PRN Administration Sleep Tizanidine HCl 2 mg 09/05/23 21:48 09/05/23 22:53 Tizanidine Hcl 4 Mg Tablet PO 10/05/23 21:47 2 mg HS ARLENE Administration NPO Date Last Intake of Fluids: 09/05/23 Time Last Intake of Fluids: 08:00 Date Last Intake of Solids: 09/05/23 Time Last Intake of Solids: 08:00 Past Medical History Medical History Deep vein thrombosis (DVT) associated with COVID-2020 (after COVID), taking Eliquis Edema of right lower extremity GERD (gastroesophageal reflux disease) History of COVID-19 2020- Developed DVT 08/2022 Hypothyroidism Migraine Mitral regurgitation Echo 2012: Mild MR. Anatomically normal MV without prolapse. Peptic ulcer disease Hx Thyroid nodule Under surveillance Exercise / Class Metabolic Activity II 4-5 Yardwork/Stairs/Walk up hill Past Family History Family History Father Family history of diabetes mellitus Mother Breast cancer age 74 Aunt Ovarian cancer Paternal Grandfather (Paternal) Prostate cancer Other Diabetes Heart disease No family history of adverse response to anesthesia Denies family history of Colorectal cancer Past Surgical History Surgical History History of adenoidectomy History of anterior colporrhaphy repair of cystocele History of bladder surgery Bladder tack History of colonoscopy History of esophagogastroduodenoscopy (EGD) History of herniorrhaphy INGUINAL HERNIA History of hysterectomy Lap Total History of hysteroscopy with endometrial ablation, and resection for intrauterine polyp removal. History of oral surgery tooth extraction History of salpingo-oophorectomy History of tonsillectomy History of tubal ligation Hx laparoscopic cholecystectomy (08/31/23) Laparoscopic Cholecystectomy and Intra-Abdominal Exploration, Lysis of Adhesions(Not Applicable) - Renata Sandoval DO S/P laparoscopic hernia repair 2019 Lap incisional hernia repair x3 + DURGA Social History Smoking Status: Never smoker Do You Dip or Chew Tobacco: No Hx Alcohol Use: Yes Alcohol type: wine alcohol intake frequency: holidays/special occasions only Hx Substance Use: No substance use type: does not use Physical Exam Vital Signs Last Vital Signs Temp 36.8 C 09/06/23 14:50 Pulse 108 H 09/06/23 14:50 Resp 20 09/06/23 14:50 BP 167/107 H 09/06/23 14:50 Pulse Ox 94 09/06/23 14:50 O2 Del Method Room Air 09/06/23 14:50 Testing Laboratory Results 09/06/23 05:25 09/06/23 06:39 PT 12.3 Seconds (9.0-12.0) H 09/05/23 15:12 INR 1.1 (0.9-1.1) 09/05/23 15:12 APTT 39.4 Seconds (21.0-31.0) H 09/06/23 05:25 Urine Color Yellow 09/05/23 17:10 Urine Appearance Clear (Clear) 09/05/23 17:10 Urine pH 7.0 (4.5-7.5) 09/05/23 17:10 Ur Specific Climax 1.006 (1.000-1.030) 09/05/23 17:10 Urine Protein Negative (Negative) 09/05/23 17:10 Urine Glucose (UA) Negative (Negative) 09/05/23 17:10 Urine Ketones Negative (Negative) 09/05/23 17:10 Urine Nitrite Negative (Negative) 09/05/23 17:10 Ur Leukocyte Esterase Negative (Negative) 09/05/23 17:10 Electrocardiogram Date: 09/05/23 DICTATED BY:Agustin Hogue MD Test Reason : Blood Pressure : / mmHG Vent. Rate : 097 BPM Atrial Rate : 097 BPM P-R Int : 132 ms QRS Dur : 096 ms QT Int : 376 ms P-R-T Axes : 057 025 011 degrees QTc Int : 477 ms Poor data quality, interpretation may be adversely affected Normal sinus rhythm Possible Left atrial enlargement Inferior infarct , age undetermined Abnormal ECG When compared with ECG of 27-AUG-2023 07:31, Vent. rate has increased BY 39 BPM Inferior infarct is now Present T wave inversion now evident in Inferior leads Confirmed by Agustin Hogue ([id number]) on 09/05/2023 4:33:23 PM
[2023-09-06] MEDS ORDERED: fentaNYL citrate PF 100 MCG/2 ML VIAL ONE ×2 (15:24→16:34)
[2023-09-06] MEDS ORDERED: MIDAZOLAM HCL 1 MG/ML 2ML VIAL ONE (15:24)
[2023-09-06] MEDS ORDERED: DEXAMETHASONE SOD INJ 4 MG/ML VIAL ONE (15:24)
[2023-09-06] MEDS ORDERED: LIDOCAINE 2% 2 ML VIAL/AMP(20MG/ML) INFIL ONE (15:24)
[2023-09-06] MEDS ORDERED: ONDANSETRON INJ 2 MG/ML 2 ML VIAL ONE (15:24)
[2023-09-06] MEDS ORDERED: PROPOFOL IV EMULSION 10 MG/ML 20 ML VIAL IV ONE (15:24)
[2023-09-06] MEDS ORDERED: ROCURONIUM BROMIDE 10 MG/ML 5 ML VIAL IV ONE (15:50)
[2023-09-06] MEDS ORDERED: SUGAMMADEX SODIUM 200 MG/2 ML VIAL IV ONE (16:23)
--- NOTE | 2023-09-06 16:24 | Operative Report ---
Post Operative Report Pre & Post Diagnosis Operation Date: 09/06/23 15:30 <No data on this case meets the specified criteria> I identified the patient and participated in the time-out.: Yes Procedure Operation Date: 09/06/23 15:30 <No data on this case meets the specified criteria> Surgeon Felix Bernabe MD Gr[employer] 1 [employer] 6 Teacher None Estimated Blood Loss 0 Findings See Below (Bile leak from the cystic duct, Abile ascites aspirated 200 cc, CBD stents placed) Specimens None Description of Procedure EUS/ERCP I attest to the content of the Intraoperative Record and any orders documented therein. Any exceptions are noted below.
--- NOTE | 2023-09-06 16:39 | GI REPORT ---
Patient Name: Venus Handy Procedure Date: 09/06/2023 3:23 PM Date of : 1970 Admit Type: Inpatient Age: 53 Gender: Female Attending MD: Felix Bernabe MD, Procedure: Upper GI endoscopy Providers: Felix Bernabe MD Referring MD: Renata Cabrales DO Indications: Abdominal pain Medicines: General Anesthesia Complications: No immediate complications. Estimated Blood Loss: Estimated blood loss: none. Procedure: Pre-Anesthesia Assessment: - Prior to the procedure, a History and Physical was performed, and patient medications, allergies and sensitivities were reviewed. The patient's tolerance of previous anesthesia was reviewed. - The risks and benefits of the procedure and the sedation options and risks were discussed with the patient. All questions were answered and informed consent was obtained. - Patient identification and proposed procedure were verified prior to the procedure by the physician and the nurse. The procedure was verified in the procedure room. - Pre-procedure physical examination revealed no contraindications to sedation. After obtaining informed consent, the endoscope was passed under direct vision. Throughout the procedure, the patient's blood pressure, pulse, and oxygen saturations were monitored continuously. The Endoscope was introduced through the mouth, and advanced to the second part of duodenum. The upper GI endoscopy was accomplished without difficulty. The patient tolerated the procedure well. Findings: The examined esophagus was normal. The entire examined stomach was normal. The duodenal bulb and second portion of the duodenum were normal. Impression: - Normal esophagus. - Normal stomach. - Normal duodenal bulb and second portion of the duodenum. - No specimens collected. Recommendation: - Perform an upper endoscopic ultrasound (UEUS) today. Felix Bernabe MD 09/06/2023 4:38:50 PM This report has been signed electronically. Note Initiated On: 09/06/2023 3:23 PM Number of Addenda: 0 I attest to the content of the Intraoperative Record and orders documented therein, exceptions below {[id number]}
--- NOTE | 2023-09-06 16:45 | GI REPORT ---
Patient Name: Venus Handy Procedure Date: 09/06/2023 3:24 PM Date of : 1970 Admit Type: Inpatient Age: 53 Gender: Female Attending MD: Felix Bernabe MD, Procedure: Upper EUS Providers: Felix Bernabe MD Referring MD: Renata Cabrales DO Indications: Abnormal abdominal/pelvic CT scan Medicines: General Anesthesia Complications: No immediate complications. Estimated Blood Loss: Estimated blood loss: none. Procedure: Pre-Anesthesia Assessment: - Prior to the procedure, a History and Physical was performed, and patient medications, allergies and sensitivities were reviewed. The patient's tolerance of previous anesthesia was reviewed. - The risks and benefits of the procedure and the sedation options and risks were discussed with the patient. All questions were answered and informed consent was obtained. - Patient identification and proposed procedure were verified prior to the procedure by the physician and the nurse. The procedure was verified in the procedure room. - Pre-procedure physical examination revealed no contraindications to sedation. After obtaining informed consent, the endoscope was passed under direct vision. Throughout the procedure, the patient's blood pressure, pulse, and oxygen saturations were monitored continuously. The scope was introduced through the mouth, and advanced to the second part of duodenum. The upper EUS was accomplished without difficulty. The patient tolerated the procedure well. Findings: ENDOSONOGRAPHIC FINDING: : Endosonographic imaging in the common bile duct showed no stones. A large amount of fluid, visualized as an anechoic structure, was found in the subhepatic peritoneal space. Diagnostic and therapeutic needle aspiration for fluid was performed. Color Doppler imaging was utilized prior to needle puncture to confirm a lack of significant vascular structures within the needle path. One pass was made with the 19 gauge needle using a transduodenal approach. The amount of fluid collected was 200 mL. The fluid was bilious. Impression: - Bilious subhepatic ascites was found on endosonographic examination of the peritoneal cavity. This was drained. Recommendation: - Perform an ERCP today. Felix Bernabe MD 09/06/2023 4:45:29 PM This report has been signed electronically. Note Initiated On: 09/06/2023 3:24 PM Number of Addenda: 0 I attest to the content of the Intraoperative Record and orders documented therein, exceptions below {[id number]}
--- NOTE | 2023-09-06 16:45 | Fluoroscopy Report ---
[place] ERCP biliary ductal CLINICAL HISTORY: ERCP I NOR COMPARISON STUDY: CT 09/05/2023 FLUOROSCOPY TIME: 1 hour and 18.1 seconds FLUOROSCOPY IMAGES: 9 EXPOSURE DOSE: 33.48 mGy FINDINGS: Endoscope within the duodenum. Cannulation of the common bile duct with retrograde injectio n of contrast and balloon sweep. Subsequent images demonstrate placement of two common bile duct sten ts. A pancreatic stent is also in place. Cholecystectomy. Extravasation of contrast in the subhepatic distribution compatible with persistent biliary leak. IMPRESSION: Fluoroscopic assistance as above. ACT 112: Negative or not required by law. Electronically signed by: Ranjan Schmitz M.D. 09/06/2023 4:44 PM
--- NOTE | 2023-09-06 16:50 | GI REPORT ---
Patient Name: Venus Handy Procedure Date: 09/06/2023 3:24 PM Date of : 1970 Admit Type: Inpatient Age: 53 Gender: Female Attending MD: Felix Bernabe MD, Procedure: ERCP Providers: Felix Bernabe MD Referring MD: Renata Cabrales DO Indications: Treatment of bile leak Medicines: General Anesthesia Complications: No immediate complications. Estimated Blood Loss: Estimated blood loss: none. Procedure: Pre-Anesthesia Assessment: - Prior to the procedure, a History and Physical was performed, and patient medications, allergies and sensitivities were reviewed. The patient's tolerance of previous anesthesia was reviewed. - The risks and benefits of the procedure and the sedation options and risks were discussed with the patient. All questions were answered and informed consent was obtained. - Patient identification and proposed procedure were verified prior to the procedure by the physician and the nurse. The procedure was verified in the procedure room. - Pre-procedure physical examination revealed no contraindications to sedation. After obtaining informed consent, the scope was passed under direct vision. Throughout the procedure, the patient's blood pressure, pulse, and oxygen saturations were monitored continuously. The Duodenoscope was introduced through the mouth, and advanced to the duodenum and used to inject contrast into the bile duct. The ERCP was accomplished without difficulty. The patient tolerated the procedure well. Findings: A health and safety tech film of the abdomen was obtained. Surgical clips, consistent with a previous cholecystectomy, were seen in the area of the right upper quadrant of the abdomen. The esophagus was successfully intubated under direct vision. The scope was advanced to a normal major papilla in the descending duodenum without detailed examination of the pharynx, larynx and associated structures, and upper GI tract. The upper GI tract was grossly normal. The ventral pancreatic duct was inadvertently cannulated. A 0.025 inch x 270 cm angled Visiglide wire was passed into the biliary tree. The short-nosed traction sphincterotome was passed over the guidewire and the bile duct was then deeply cannulated. Contrast was injected. I personally interpreted the bile duct images. Ductal flow of contrast was adequate. Image quality was adequate. Contrast extended to the main bile duct. Opacification of the entire biliary tree except for the gallbladder was successful. The maximum diameter of the ducts was 10 mm. Extravasation of contrast originating from the cystic duct was observed. Biliary sphincterotomy was made with a monofilament traction (standard) sphincterotome using ERBE electrocautery. There was no post-sphincterotomy bleeding. The biliary tree was swept with a 12 mm balloon starting at the bifurcation. Nothing was found. One 5 Fr by 7 cm plastic pancreatic stent with a single external pigtail and no internal flaps was placed into the ventral pancreatic duct. Clear fluid flowed through the stent. The stent was in good position. One 10 mm by 8 cm covered metal biliary stent was placed into the common bile duct. Bile flowed through the stent. The stent was in good position. One 7 Fr by 10 cm plastic biliary stent with a single external pigtail and a single internal pigtail was placed into the common bile duct. Bile flowed through the stent. The stent was in good position. Impression: - A bile leak from the cystic duct was found. - A biliary sphincterotomy was performed. - One plastic pancreatic stent was placed into the ventral pancreatic duct. - One covered metal and one plastic biliary stent was placed into the common bile duct. Recommendation: - [facility] care. - Repeat ERCP in 3 months to remove stent. Felix Bernabe MD 09/06/2023 4:50:32 PM This report has been signed electronically. Note Initiated On: 09/06/2023 3:24 PM Number of Addenda: 0 I attest to the content of the Intraoperative Record and orders documented therein, exceptions below {[id number]}
[2023-09-06] MEDS: PANTOprazole 40 MG TAB PO PRN (20:15)
[2023-09-06] MEDS: tiZANidine HCL 4 MG TABLET PO SCH (20:16)
[2023-09-07] MEDS: HYDROmorphone INJ 0.5 MG/0.5 ML SYR IV PRN ×3 (03:18→23:18)
[2023-09-07] MEDS: SODIUM CHLORIDE 0.9% 1,000 ML IV SCH ×2 (06:33→12:31)
[2023-09-07] MEDS: LEVOTHYROXINE SODIUM 100 MCG TABLET PO SCH (06:33)
[2023-09-07] MEDS: ACETAMINOPHEN 1,000 MG/100 ML VIAL IV PRN (06:36)
[2023-09-07] MEDS: diphenhydrAMINE 50 MG/ML VIAL IV PRN ×3 (07:19→23:18)
[2023-09-07] MEDS: PIPERACILLIN/TAZOBACTAM 4.5 GM in DEXTROSE 5% MINI-B 100 ML IV SCH ×3 (07:20→23:19)
[2023-09-07] MEDS: lisinopril 2.5 MG TAB PO SCH (08:16)
[2023-09-07 10:23] LABS: Basophils # (auto) 0.05 K/uL (0.00-0.20); Basophils % (auto) 0.2 %; Eosinophils # (auto) 0.03 K/uL (0.00-0.50); Eosinophils % (auto) 0.1 %; Hematocrit (blood only) 44.3 % (37.0-47.0); Hemoglobin 14.5 g/dl (12.0-16.0); Immature Granulocytes # (auto) 0.21 K/uL (0.01-0.20); Lymphocytes # (auto) 1.23 K/uL (1.20-3.40); Lymphocytes % (auto) 5.7 %; Mean Corpuscular Hemoglobin 29.8 pg (25.0-34.0); Mean Corpuscular Hgb Conc 32.7 g/dL (32.0-36.0); Mean Platelet Volume 10.9 fL (9.4-12.4); Monocytes # (auto) 1.13 K/uL (0.11-0.59); Monocytes % (auto) 5.3 %; Neutrophils % (auto) 87.7 %; Platelet Count 271 K/uL (130-400); RDW Coefficient of Variation 13.1 % (11.5-14.5); RDW Standard Deviation 43.9 fL (36.4-46.3); Red Blood Count 4.87 M/uL (4.20-5.40); White Blood Count 21.45 K/ul (4.8-10.8)
[2023-09-07 10:33] LABS: Partial Thromboplastin Time 27.9 Seconds (21.0-31.0)
--- NOTE | 2023-09-07 10:53 | Surgery Progress Note ---
Date of Service September 07, 2023 Assessment & Plan (1) Bile leak, postoperative: Plan: Her diet can be advanced as tolerated Keep her on antibiotics for her bile leak Heparin can be restarted tomorrow afternoon and then her Eliquis can be restarted Sunday for her DVTs If she progresses over the weekend she can be discharged with follow-up with Dr. Marti Montelongo this week She is not quite ready for discharge today Admission and Anticipated Discharge Date Admission Date: September 05, 2023 Subjective Patient seen and examined. She feels better than yesterday. She did have her ERCP and stent placement for bile leak. No nausea or vomiting she is tolerating clear liquids. Physical Exam Constitutional: WD/WN, vitals as above Gastrointestinal (Abdomen): Inspection/Auscultation: abdomen normal to in spection; abdomen not distended Percussion/Palpation: + abdomen tender (Improved) and abdomen soft; no guarding Results & Data Vital Signs (Past 12 Hours) Vital Signs Temp Pulse Resp BP Pulse Ox O2 Del Method O2 Flow Rate 09/07/23 07:45 36.7 C 83 16 184/81 H 96 Nasal Cannula 1 09/07/23 04:00 36.8 C 84 18 138/78 95 Nasal Cannula 2 09/07/23 00:00 36.7 C 77 18 149/77 H 94 Nasal Cannula 2 PG Care Time/CCT Total # of Minutes Spent Total Time Spent with Patient: Total time spent is greater than 50% in coordination of care (as documented) at patient's floor/unit and/or counseling patient: Coding Level of Care Code None Diagnoses Bile leak, postoperative K91.89; K83.8
--- NOTE | 2023-09-07 11:44 | Gastroenterology Progress Note ---
Date of Service September 07, 2023 Assessment & Plan (1) Bile leak, postoperative: Plan: Post ERCP w stent placed in the CBD. Plan May restart heparin at 24 hrs after ERCP (Sun afternoon) and Eliquis 4 days after the procedure (Sunday). Keep on broad spectrum IV antibiotics while admitted. When in less pain, please send home on Augmentin 875mg BID. Advance diet as tolerated. Admission and Anticipated Discharge Date Admission Date: September 05, 2023 Supervising Physician Co-Signing Physician Notes I performed a history and physical examination of the patient today, including specifically on physical exam - soft abdomen. I have discussed the patient's management with the advanced practitioner. Please refer to the nurse practitioner's note for the documented findings and plan of care. Pain improved. Tolerating diet. Continue ABx. Repeat ERCP as OP. Recall GI if needed. Subjective Patient seen and examined. She feels better than yesterday. Still w a lot of pain but she feels "better" than prior to ERCP w stent yesterday. Taking clear liquids po well - but still no No nausea or vomiting she is tolerating clear liquids. Review of Systems Review of Systems: ROS: Gen: + pain w walking but able to get out of bed. Denies weakness, fevers, weight loss Eyes: No eye redness, or pain, no recent vision changes Resp: No SOB, no cough Cardio: No palpitations/irregular beats, no chest pain; mild bilat lower leg edema is chronic - unchanged. GI: As per HPI, otherwise (-) : Denies pain on urination Skin: No jaundice, itching or new rashes Physical Exam Constitutional: WD/WN, vitals as above Eyes: PERRL, conjunctivae normal, anicteric sclerae ENMT: external ear and nose normal, oropharynx normal Neck: trachea midline, no thyromegaly Respiratory: normal respiratory effort, lungs clear to auscultation Cardiovascular: Heart Sounds: normal S1 and normal S2; no murmur Gastrointestinal (Abdomen): Moderate epigastric tenderness, soft, no masses, BS present but hypoactive. Skin: no rashes, warm and dry Neurologic: patellar DTR's 2+ bilat, sensation intact Psychiatric: A+Ox3, euthymic affect Lymphatic: no cervical or axillary lymphadenopathy Results & Data Vital Signs (Past 12 Hours) Vital Signs Temp Pulse Resp BP Pulse Ox O2 Del Method O2 Flow Rate 09/07/23 11:00 36.8 C 87 16 164/90 H 94 Room Air 09/07/23 07:45 36.7 C 83 16 184/81 H 96 Nasal Cannula 1 09/07/23 04:00 36.8 C 84 18 138/78 95 Nasal Cannula 2 09/07/23 00:00 36.7 C 77 18 149/77 H 94 Nasal Cannula 2 Laboratory Results WBC 21, Hb 14, Hct 43, Plts 271
[2023-09-07] MEDS: DOCUSATE SODIUM 100 MG CAP PO SCH ×2 (12:13→21:14)
[2023-09-07] MEDS ORDERED: ACETAMINOPHEN 325 MG TAB PO PRN (14:24)
[2023-09-07] MEDS: tiZANidine HCL 4 MG TABLET PO SCH (21:14)
[2023-09-08] MEDS: ACETAMINOPHEN 1,000 MG/100 ML VIAL IV PRN (03:28)
[2023-09-08] MEDS: PANTOprazole 40 MG TAB PO PRN (03:46)
[2023-09-08] MEDS: LEVOTHYROXINE SODIUM 100 MCG TABLET PO SCH (05:55)
[2023-09-08] MEDS: HYDROmorphone INJ 0.5 MG/0.5 ML SYR IV PRN ×2 (05:57→19:10)
[2023-09-08 07:41] LABS: BUN Creatinine Ratio 18.3 (10-20); Calcium 8.2 mg/dl (8.6-10.3); Creatinine Clr Calc Pharmacy 114.3 ml/min; Est GFR (African American) 119.8 ml/min; Est GFR (Non-African American) 103.3 ml/min; Potassium 3.2 mmol/L (3.5-5.1)
[2023-09-08] MEDS: PIPERACILLIN/TAZOBACTAM 4.5 GM in DEXTROSE 5% MINI-B 100 ML IV SCH ×2 (07:52→16:10)
[2023-09-08 08:09] LABS: Partial Thromboplastin Ratio 1.1; Partial Thromboplastin Time 29.9 Seconds (21.0-31.0)
[2023-09-08] MEDS: DOCUSATE SODIUM 100 MG CAP PO SCH ×2 (08:47→21:24)
[2023-09-08] MEDS: lisinopril 2.5 MG TAB PO SCH (08:51)
--- NOTE | 2023-09-08 09:38 | Surgery Progress Note ---
Date of Service September 08, 2023 Assessment & Plan (1) Bile leak, postoperative: Plan: improving restart heparin Admission and Anticipated Discharge Date Admission Date: September 05, 2023 Subjective feels alittle better taking po ambulating Review of Systems Constitutional: no fever and no chills Respiratory: no cough and no dyspnea Cardiovascular: no chest pain Gastrointestinal: + abdominal pain; no nausea and no vomiting Genitourinary: no dysuria Musculoskeletal: + swelling Integumentary: + rash; no lesions Neurologic: + generalized weakness; no localized weakness Results & Data Vital Signs (Past 12 Hours) Vital Signs Temp Pulse Pulse Resp BP Pulse Ox O2 Del Method 09/08/23 08:50 99 H 137/90 09/08/23 07:23 36.9 C 80 17 145/75 H 94 Room Air 09/08/23 04:00 37.3 C 84 18 155/81 H 92 Room Air
[2023-09-08] MEDS: HEPARIN SODIUM/DEXTROSE 25,000 UNITS/500 ML BAG IV SCH (12:47)
[2023-09-08] MEDS: ONDANSETRON INJ 2 MG/ML 2 ML VIAL IV PRN (19:16)
[2023-09-08 20:02] LABS: Partial Thromboplastin Ratio 1.3; Partial Thromboplastin Time 35.6 Seconds (21.0-31.0)
[2023-09-08] MEDS ORDERED: HEPARIN SOD (PORCINE) 1000 UNIT/ML IV ONE (20:45)
[2023-09-08] MEDS: tiZANidine HCL 4 MG TABLET PO SCH (21:24)
[2023-09-08] MEDS: oxyCODONE HCL IR 5 MG TAB (IMMEDIATE RELEASE) PO PRN (21:31)
[2023-09-09] MEDS: PIPERACILLIN/TAZOBACTAM 4.5 GM in DEXTROSE 5% MINI-B 100 ML IV SCH ×4 (00:34→23:57)
[2023-09-09 02:43] LABS: Basophils # (auto) 0.05 K/uL (0.00-0.20); Basophils % (auto) 0.3 %; Eosinophils # (auto) 0.32 K/uL (0.00-0.50); Eosinophils % (auto) 2.1 %; Hematocrit (blood only) 35.3 % (37.0-47.0); Immature Granulocytes # (auto) 0.15 K/uL (0.01-0.20); Lymphocytes # (auto) 1.97 K/uL (1.20-3.40); Lymphocytes % (auto) 12.6 %; Mean Corpuscular Hemoglobin 29.9 pg (25.0-34.0); Mean Corpuscular Volume 87.8 fL (80.0-100.0); Mean Platelet Volume 10.5 fL (9.4-12.4); Monocytes # (auto) 1.02 K/uL (0.11-0.59); Monocytes % (auto) 6.5 %; Neutrophils # (auto) 12.07 K/uL (1.40-6.50); Neutrophils % (auto) 77.5 %; Platelet Count 291 K/uL (130-400); RDW Standard Deviation 41.6 fL (36.4-46.3); Red Blood Count 4.02 M/uL (4.20-5.40); White Blood Count 15.58 K/ul (4.8-10.8)
[2023-09-09 02:59] LABS: BUN Creatinine Ratio 23.5 (10-20); Calcium 8.1 mg/dl (8.6-10.3); Creatinine Clr Calc Pharmacy 134.5 ml/min; Est GFR (African American) 126.3 ml/min; Potassium 3.3 mmol/L (3.5-5.1)
[2023-09-09 03:37] LABS: Partial Thromboplastin Ratio 2.4
[2023-09-09 04:00] LABS: Partial Thromboplastin Time 66.6 Seconds (21.0-31.0)
[2023-09-09] MEDS: diphenhydrAMINE 50 MG/ML VIAL IV PRN ×2 (04:19→22:03)
[2023-09-09] MEDS: oxyCODONE HCL IR 5 MG TAB (IMMEDIATE RELEASE) PO PRN ×3 (04:25→19:31)
[2023-09-09] MEDS: PANTOprazole 40 MG TAB PO PRN (05:23)
[2023-09-09] MEDS: LEVOTHYROXINE SODIUM 100 MCG TABLET PO SCH (05:23)
[2023-09-09] MEDS: HYDROmorphone INJ 0.5 MG/0.5 ML SYR IV PRN ×2 (06:29→22:04)
--- NOTE | 2023-09-09 08:03 | Surgery Progress Note ---
Date of Service September 09, 2023 Assessment & Plan (1) Bile leak, postoperative: Plan: s/p ERCP with stent improving WBC down (2) Right leg swelling: Plan: heparin begun eliquis in AM Admission and Anticipated Discharge Date Admission Date: September 05, 2023 Subjective feels better eating OK ambulating Review of Systems Constitutional: no fever and no chills Eyes: no problem reported Respiratory: no cough and no dyspnea Cardiovascular: no chest pain Gastrointestinal: + abdominal pain; no nausea and no vomiting Genitourinary: no dysuria Musculoskeletal: no back pain Physical Exam Constitutional: WD/WN, vitals as above Eyes: PERRL, conjunctivae normal, anicteric sclerae Neck: trachea midline Respiratory: normal respiratory effort, lungs clear to auscultation Cardiovascular: RRR, no murmur, no edema Gastrointestinal (Abdomen): Inspection/Auscultation: abdomen normal to inspection and normal bowel sounds; abdomen not distended Percussion/Pa lpation: + abdomen tender and abdomen soft; no guarding and abdomen not rigid Musculoskeletal: Head/Neck/Chest: normocephalic and head atraumatic Skin: + rash Results & Data Vital Signs (Past 12 Hours) Vital Signs Temp Pulse Resp BP Pulse Ox O2 Del Method 09/09/23 07:56 36.8 C 69 16 137/77 94 Room Air 09/09/23 00:00 36.7 C 76 18 148/74 H 92 Room Air 09/08/23 20:36 37.2 C 85 14 153/88 H 93 Room Air
[2023-09-09] MEDS: HEPARIN SODIUM/DEXTROSE 25,000 UNITS/500 ML BAG IV SCH (08:14)
[2023-09-09 09:18] LABS: Partial Thromboplastin Ratio 2.1
[2023-09-09 09:21] LABS: Partial Thromboplastin Time 60.3 Seconds (21.0-31.0)
[2023-09-09] MEDS: DOCUSATE SODIUM 100 MG CAP PO SCH ×2 (09:41→20:23)
[2023-09-09] MEDS: lisinopril 2.5 MG TAB PO SCH (09:42)
[2023-09-09] MEDS ORDERED: POTASSIUM CHLORIDE CRTAB 20 MEQ TABCR PO STA (10:36)
[2023-09-09] MEDS: diphenhydrAMINE Capsule 25 MG CAP PO PRN (14:10)
[2023-09-09] MEDS: tiZANidine HCL 4 MG TABLET PO SCH (20:23)
[2023-09-09] MEDS: MELATONIN 3 MG TAB PO PRN (22:03)
[2023-09-10] MEDS: HEPARIN SODIUM/DEXTROSE 25,000 UNITS/500 ML BAG IV SCH ×2 (05:41→07:22)
[2023-09-10] MEDS: LEVOTHYROXINE SODIUM 100 MCG TABLET PO SCH (06:06)
[2023-09-10] MEDS: oxyCODONE HCL IR 5 MG TAB (IMMEDIATE RELEASE) PO PRN ×3 (06:16→20:27)
[2023-09-10] MEDS: diphenhydrAMINE Capsule 25 MG CAP PO PRN ×2 (06:17→14:38)
[2023-09-10 08:44] LABS: BUN Creatinine Ratio 22.1 (10-20); Calcium 8.4 mg/dl (8.6-10.3); Creatinine Clr Calc Pharmacy 100.8 ml/min; Est GFR (African American) 114.9 ml/min; Est GFR (Non-African American) 99.2 ml/min; Potassium 3.6 mmol/L (3.5-5.1)
[2023-09-10 08:48] LABS: Partial Thromboplastin Ratio 1.1; Partial Thromboplastin Time 31.9 Seconds (21.0-31.0)
[2023-09-10 09:21] LABS: INR 1.2 (0.9-1.1)
[2023-09-10] MEDS: lisinopril 2.5 MG TAB PO SCH (09:34)
[2023-09-10] MEDS: PIPERACILLIN/TAZOBACTAM 4.5 GM in DEXTROSE 5% MINI-B 100 ML IV SCH ×3 (09:34→22:30)
[2023-09-10] MEDS: DOCUSATE SODIUM 100 MG CAP PO SCH ×2 (09:34→20:26)
--- NOTE | 2023-09-10 09:42 | Surgery Progress Note ---
I have seen and examined this patient with the surgical PA. I agree with the plan Date of Service September 10, 2023 Assessment & Plan (1) Bile leak, postoperative: Plan: patient up and showered this AM Reports she is feeling good Tolerating low fat diet Denies vomiting, fever/ chills, Pain is better than yesterday however chemicals distiller in RUQ Passing flatus WBC increased to 17 (15) Anticoagulation held this AM for possible IR drainage, will restart per IR recommendations NPO until procedure Patient seen and examined with Dr. Sandoval Admission and Anticipated Discharge Date Admission Date: September 05, 2023 Subjective patient up and showered this AM Reports she is feeling good Tolerating low fat diet Denies vomiting, fever/ chills, Pain is better than yesterday however chemicals distiller in RUQ Passing flatus Review of Systems Constitutional: no fever, no chills and no sweats Respiratory: no dyspnea Cardiovascular: no chest pain Gastrointestinal: + abdominal pain; no belching and no vomiting Physical Exam Physical Exam: alert oriented pleasant Constitutional: cooperative and comfortable; no acute distress Respiratory: normal respiratory effort and able to speak in complete se ntences; no respiratory distress Cardiovascular: Rate/Rhythm: regular rate Gastrointestinal (Abdomen): Inspection/Auscultation: + abdominal surgical incision (dermabond over port sites ); abdomen not distended Percussion/Palpation: + abdomen tender (RUQ) and abdomen soft; no guarding Results & Data Vital Signs (Past 12 Hours) Vital Signs Temp Pulse Resp BP Pulse Ox O2 Del Method 09/10/23 07:44 98.2 F 80 16 116/77 95 Room Air 09/10/23 05:07 98.6 F 73 18 136/71 93 Room Air 09/10/23 01:03 98.6 F 76 18 129/69 93 Room Air 09/09/23 21:52 98.6 F 85 18 133/63 94 Room Air PG Care Time/CCT Total # of Minutes Spent Total Time Spent with Patient: Total time spent is greater than 50% in coordination of care (as documented) at patient's floor/unit and/or counseling patient: Coding Level of Care Code 41052 Post Operative Follow-Up Diagnoses Bile leak, postoperative K91.89; K83.8
[2023-09-10 11:28] LABS: Basophils # (auto) 0.08 K/uL (0.00-0.20); Basophils % (auto) 0.5 %; Eosinophils # (auto) 0.44 K/uL (0.00-0.50); Eosinophils % (auto) 2.5 %; Hematocrit (blood only) 39.1 % (37.0-47.0); Hemoglobin 13.4 g/dl (12.0-16.0); Immature Granulocytes # (auto) 0.36 K/uL (0.01-0.20); Immature Granulocytes % (auto) 2.1 %; Lymphocytes # (auto) 1.69 K/uL (1.20-3.40); Lymphocytes % (auto) 9.7 %; Mean Corpuscular Hemoglobin 30.4 pg (25.0-34.0); Mean Corpuscular Hgb Conc 34.3 g/dL (32.0-36.0); Mean Corpuscular Volume 88.7 fL (80.0-100.0); Mean Platelet Volume 11.6 fL (9.4-12.4); Monocytes # (auto) 1.09 K/uL (0.11-0.59); Monocytes % (auto) 6.2 %; Neutrophils # (auto) 13.85 K/uL (1.40-6.50); Platelet Count 347 K/uL (130-400); RDW Coefficient of Variation 13.2 % (11.5-14.5); RDW Standard Deviation 43.1 fL (36.4-46.3); Red Blood Count 4.41 M/uL (4.20-5.40); White Blood Count 17.51 K/ul (4.8-10.8)
[2023-09-10] MEDS ORDERED: fentaNYL citrate PF 100 MCG/2 ML VIAL ONE (15:04)
--- NOTE | 2023-09-10 16:45 | CT Scan Report ---
CT-guided right upper quadrant fluid collection drain placement INDICATION: History of cholecystectomy with postoperative bile leak PROCEDURE: Procedure and risks were explained. Informed consent was obtained. A final timeout was com pleted. The patient was placed in a left decubitus position on the CT exam table. The right abdomen w as prepped and draped in sterile fashion. 1% buffered lidocaine was utilized for skin anesthesia. The patient received 50 mcg fentanyl IV. Utilizing CT guidance, an 18-gauge Chiba needle was advanced into the right upper quadrant fluid leodan ection. A 0.035 Amplatz wire was introduced through the Chiba needle and exchanged for an 10 [place] l ocking pigtail catheter. Approximately 300 mL of bilious fluid was removed and a portion sent to lab for analysis. The catheter was sutured to the skin with 2-0 silk and placed to suction bag drainage. The patient tolerated the procedure well. Post CT imaging demonstrated adequate catheter position wit hout immediate complication. IMPRESSION: Right upper quadrant fluid collection drain placement as detailed above. Performed, dictated, and signed by Stephen Quintana PA-C; to be co-signed by Dr. Peter Mckenzie. Electronically signed by: Peter Mckenzie M.D. 09/10/2023 8:53 PM
[2023-09-10] MEDS ORDERED: HEPARIN SODIUM/DEXTROSE 25,000 UNITS/500 ML BAG IV SCH (18:15)
[2023-09-10] MEDS: tiZANidine HCL 4 MG TABLET PO SCH (20:26)
[2023-09-10] MEDS: MELATONIN 3 MG TAB PO PRN (22:30)
[2023-09-10] MEDS: ONDANSETRON INJ 2 MG/ML 2 ML VIAL IV PRN (22:31)
[2023-09-10] MEDS: HYDROmorphone INJ 0.5 MG/0.5 ML SYR IV PRN (22:31)
[2023-09-11] MEDS: oxyCODONE HCL IR 5 MG TAB (IMMEDIATE RELEASE) PO PRN ×3 (02:23→16:34)
[2023-09-11 02:49] LABS: Partial Thromboplastin Ratio 1.8
[2023-09-11] MEDS: HYDROmorphone INJ 0.5 MG/0.5 ML SYR IV PRN ×2 (05:08→22:48)
[2023-09-11] MEDS: ONDANSETRON INJ 2 MG/ML 2 ML VIAL IV PRN ×2 (05:13→22:47)
[2023-09-11] MEDS: LEVOTHYROXINE SODIUM 100 MCG TABLET PO SCH (05:38)
[2023-09-11 08:35] LABS: Basophils # (auto) 0.08 K/uL (0.00-0.20); Basophils % (auto) 0.7 %; Eosinophils # (auto) 0.45 K/uL (0.00-0.50); Eosinophils % (auto) 3.8 %; Hematocrit (blood only) 34.9 % (37.0-47.0); Hemoglobin 11.6 g/dl (12.0-16.0); Immature Granulocytes # (auto) 0.37 K/uL (0.01-0.20); Immature Granulocytes % (auto) 3.1 %; Lymphocytes # (auto) 1.74 K/uL (1.20-3.40); Lymphocytes % (auto) 14.6 %; Mean Corpuscular Hemoglobin 29.6 pg (25.0-34.0); Mean Corpuscular Hgb Conc 33.2 g/dL (32.0-36.0); Mean Platelet Volume 11.4 fL (9.4-12.4); Monocytes # (auto) 0.77 K/uL (0.11-0.59); Monocytes % (auto) 6.5 %; Neutrophils # (auto) 8.52 K/uL (1.40-6.50); Neutrophils % (auto) 71.3 %; Platelet Count 320 K/uL (130-400); RDW Coefficient of Variation 13.2 % (11.5-14.5); RDW Standard Deviation 43.4 fL (36.4-46.3); Red Blood Count 3.92 M/uL (4.20-5.40); White Blood Count 11.93 K/ul (4.8-10.8)
[2023-09-11] MEDS: APIXABAN 5 MG TABLET PO SCH ×2 (08:43→20:38)
[2023-09-11] MEDS: DOCUSATE SODIUM 100 MG CAP PO SCH ×2 (08:43→20:38)
[2023-09-11] MEDS: PANTOprazole 40 MG TAB PO PRN (08:43)
[2023-09-11] MEDS: lisinopril 2.5 MG TAB PO SCH (08:43)
[2023-09-11] MEDS: PIPERACILLIN/TAZOBACTAM 4.5 GM in DEXTROSE 5% MINI-B 100 ML IV SCH ×2 (08:43→16:31)
[2023-09-11] MEDS: diphenhydrAMINE Capsule 25 MG CAP PO PRN ×2 (08:50→22:45)
[2023-09-11 08:58] LABS: BUN Creatinine Ratio 17.2 (10-20); Calcium 8.2 mg/dl (8.6-10.3); Creatinine Clr Calc Pharmacy 107.2 ml/min; Est GFR (African American) 117.3 ml/min; Est GFR (Non-African American) 101.2 ml/min; Potassium 3.5 mmol/L (3.5-5.1)
[2023-09-11 09:05] LABS: Partial Thromboplastin Ratio 1.4; Partial Thromboplastin Time 39.9 Seconds (21.0-31.0)
[2023-09-11] MEDS ORDERED: POLYETHYLENE (MIRALAX) 17 GM PACK PO PRN (10:55)
--- NOTE | 2023-09-11 11:02 | Surgery Progress Note ---
I have seen and discussed this patient with surgical PA. I agree with the plan Date of Service September 11, 2023 Assessment & Plan (1) Bile leak, postoperative: Plan: Reports she is feeling ok Tolerating low fat diet Denies nausea, vomiting, fever/ chills, Pain is better than yesterday however polystyrene molding machine tender in RUQ and left mid abdominal area Passing flatus last BM three days ago taking the Colace, ordered PRN Miralax pack IR drain placed yesterday has 500ml in bag bilious fluid WBC increased to 11 (17) Eliquis resumed this AM , Patient will need to follow up with PCP o/p Likely patient will go home tomorrow or later today with IR drain, Patient will follow up o/p with Dr. Sandoval IR recommends that patient keep IR drain for a week and then have repeat imaging before pulling drain. Admission and Anticipated Discharge Date Admission Date: September 05, 2023 Subjective Reports she is feeling ok Tolerating low fat diet Denies nausea, vomiting, fever/ chills, Pain is better than yesterday however polystyrene molding machine tender in RUQ and left mid abdominal area Passing flatus last BM three days ago IR drain placed yesterday Review of Systems Constitutional: no fever, no chills and no sweats Cardiovascular: no chest pain Gastrointestinal: + abdominal pain and + bloating; no nausea and no vomiting Genitourinary: no problem reported Physical Exam Physical Exam: alert oriented pleasant Constitutional: cooperative and comfortable; no acute distress Respiratory: normal respiratory effort and able to speak in complete sentences; no respiratory distress Cardiovascular: Rate/Rhythm: regular rate Gastrointestinal (Abdomen): Inspection/Auscultation: + abdominal surgical incision (dermabond over port sites ) and + abdominal surgical drain present (IR drain) Percussion/Palpation: + abdomen tender (RUQ) and abdomen soft; no guarding Results & Data Vital Signs (Past 12 Hours) Vital Signs Temp Pulse Resp BP Pulse Ox O2 Del Method 09/11/23 07:41 99.1 F 76 16 145/76 H 96 Room Air 09/10/23 23:00 98.1 F 72 18 112/74 93 Room Air PG Care Time/CCT Total # of Minutes Spent Total Time Spent with Patient: Total time spent is greater than 50% in coordination of care (as documented) at patient's floor/unit and/or counseling patient: Coding Level of Care Code 08774 Post Operative Follow-Up Diagnoses Bile leak, postoperative K91.89; K83.8
[2023-09-11] MEDS: MELATONIN 3 MG TAB PO PRN (22:45)
[2023-09-11] MEDS: tiZANidine HCL 4 MG TABLET PO SCH (22:46)
[2023-09-12] MEDS: PIPERACILLIN/TAZOBACTAM 4.5 GM in DEXTROSE 5% MINI-B 100 ML IV SCH ×2 (00:27→08:49)
[2023-09-12] MEDS: ONDANSETRON INJ 2 MG/ML 2 ML VIAL IV PRN (05:21)
[2023-09-12] MEDS: oxyCODONE HCL IR 5 MG TAB (IMMEDIATE RELEASE) PO PRN (05:25)
[2023-09-12] MEDS: LEVOTHYROXINE SODIUM 100 MCG TABLET PO SCH (05:31)
--- NOTE | 2023-09-12 07:39 | Surgery Progress Note ---
I have seen and discussed this patient with the surgical PA. I agree with the plan Date of Service September 12, 2023 Assessment & Plan (1) Bile leak, postoperative: Plan: Reports she is feeling ok Tolerating low fat diet Denies nausea, vomiting, fever/ chills, this AM , low grade temp yesterday evening and felt flush Labs not drawn yet this AM , WBC yesterday 11 Pain is better than yesterday however milled rubber tender mid abdominal area Passing flatus last BM yesterday IR drain placed two days ago, draining yellowish fluid post operative port sites having redness surrounding, pt states this happened last time she had dermabond, appears to be allergic, reports topical cream helps Eliquis resumed yesterday pt to continue this upon D/C and f/u with PCP still has right leg swelling with +PP Likely patient will go home later today with IR drain, pending this AM labs Patient will follow up o/p with Dr. Sandoval IR recommends that patient keep IR drain for a week and then have repeat imaging before pulling drain. Admission and Anticipated Discharge Date Admission Date: September 05, 2023 Subjective Reports she is feeling ok Tolerating low fat diet Denies nausea, vomiting, chills, Had low grade temp yesterday evening 99.5 Pain is better than yesterday however milled rubber tender in midepigastric area Passing flatus last BM yesterday IR drain placed 2 days ago Review of Systems Constitutional: no fever (this AM ), no chills and no sweats Cardiovascular: no chest pain Gastrointestinal: + abdominal pain (mid-epigastric) and + heartburn; no nausea and no vomiting Genitourinary: no problem reported Physical Exam Physical Exam: alert oriented pleasant Constitutional: cooperative and comfortable; no acute distress Respiratory: normal respiratory effort and able to speak in complete sentences; no respiratory distress Cardiovascular: Rate/Rhythm: regular rate Gastrointestinal (Abdomen): Inspection/Auscultation: + abdominal surgical incision (dermabond over port sites, reddness with blanching around dermabond ) and + abdominal surgical drain present (IR drain); abdomen not distended Percussion/Palpation: + abdomen tender (mid epigastric ) and abdomen soft; no guarding and abdomen not firm Musculoskeletal: Right leg swelling from known DVTs Skin: reddness around dermabond , + blanching, appears to be allergic , patient reports this happened last time dermabond was used. Will add to allergy list Results & Data Vital Signs (Past 12 Hours) Vital Signs Temp Pulse Resp BP Pulse Ox O2 Del Method 09/11/23 20:00 99.5 F 75 18 163/85 H 98 Room Air PG Care Time/CCT Total # of Minutes Spent Total Time Spent with Patient: Total time spent is greater than 50% in coordination of care (as documented) at patient's floor/unit and/or counseling patient: Coding Level of Care Code 02220 SUB INP/OBS CARE 2/35MIN Diagnoses Bile leak, postoperative K91.89; K83.8
[2023-09-12] MEDS: lisinopril 2.5 MG TAB PO SCH (08:44)
[2023-09-12] MEDS: DOCUSATE SODIUM 100 MG CAP PO SCH (08:44)
[2023-09-12] MEDS: APIXABAN 5 MG TABLET PO SCH (08:44)
[2023-09-12 08:46] LABS: Hematocrit (blood only) 36.8 % (37.0-47.0); Hemoglobin 12.6 g/dl (12.0-16.0); Mean Corpuscular Hemoglobin 30.1 pg (25.0-34.0); Mean Corpuscular Hgb Conc 34.2 g/dL (32.0-36.0); Mean Platelet Volume 10.1 fL (9.4-12.4); Platelet Count 356 K/uL (130-400); RDW Coefficient of Variation 13.1 % (11.5-14.5); RDW Standard Deviation 42.2 fL (36.4-46.3); Red Blood Count 4.18 M/uL (4.20-5.40); White Blood Count 11.47 K/ul (4.8-10.8)
[2023-09-12 09:12] LABS: Basophils # (auto) 0.06 K/uL (0.00-0.20); Basophils % (auto) 0.5 %; Eosinophils # (auto) 0.38 K/uL (0.00-0.50); Eosinophils % (auto) 3.3 %; Immature Granulocytes % (auto) 2.6 %; Lymphocytes # (auto) 1.71 K/uL (1.20-3.40); Lymphocytes % (auto) 14.9 %; Monocytes # (auto) 0.82 K/uL (0.11-0.59); Monocytes % (auto) 7.1 %; Neutrophils % (auto) 71.6 %
[2023-09-12 09:13] LABS: Partial Thromboplastin Ratio 1.2; Partial Thromboplastin Time 33.9 Seconds (21.0-31.0)
[2023-09-12 09:17] LABS: BUN Creatinine Ratio 13.2 (10-20); Calcium 8.4 mg/dl (8.6-10.3); Creatinine Clr Calc Pharmacy 100.8 ml/min; Est GFR (African American) 114.9 ml/min; Est GFR (Non-African American) 99.2 ml/min
--- NOTE | 2023-09-12 15:45 | Discharge Summary ---
Date of Service September 12, 2023 Admission HPI Per Admitting Provider This is a 53-year-old female who underwent a laparoscopic cholecystectomy by Dr. Ugarte of [facility] group General surgery on 08/31/2023. The patient notes that she was discharged home the same day as her surgery. Patient notes that since being home from her surgery she has had persistent right upper quadrant abdominal pain and has had very little oral intake as she has just not had much of an appetite. She notes that over the ensuing timeframe since being discharged home up until today the right upper quadrant pain has been persistent and has gotten much worse. She has not had any nausea or vomiting. She denies any fevers, shakes, or chills. Concerning the pain she says it is nonradiating and she denies any palliative factors. She notes that it is worse with movement. She does note that she has had a bowel movement within the past 24 hours. Because of the ongoing nature of the pain she presented to the emergency department. 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 She notes that postoperatively she did resume her Eliquis with the evening dose on 09/04/2023 which was last evening. The patient's most recent lower extremity ultrasound available for my review was on 02/24/2022 where the patient did not have any evidence of DVT bilaterally. Patient does note that she has had chronic lower extremity pain Since arrival to the hospital the patient has had labs and imaging which I independent reviewed. CT scan abdomen pelvis showed that she had postoperative changes consistent with a laparoscopic cholecystectomy. Patient was noted have a postoperative fluid collection in the inferior flaco hepatis region along the right hepatic lobe which measured approximate 10 cm. There is mild common bile duct dilatation. Small volume of abdominal ascites was noted but no small bowel obstruction was noted Labs include a CBC her white blood cell count was elevated at 16.8. Her hemoglobin and hematocrit along with her platelet count were normal. Her INR is 1.1. Chemistry profile showed sodium was normal. Her BUN and creatinine were both normal. Her potassium is low at 3.1. Patient did have an elevated total bilirubin at 1.8 and elevated transaminases with an AST of 77 and ALT of 89. Her alkaline phosphatase was not elevated. Troponin was not elevated and lipase was within normal range. Urinalysis was not indicative of infection. At the time of my interview the patient was resting comfortably in bed and she was in no distress Principal Diagnosis post operative bile leak Discharge Exam alert oriented pleasant Constitutional cooperative and comfortable; no acute distress Respiratory normal respiratory effort and able to speak in complete sentences; no respiratory distress Cardiovascular Rate/Rhythm: regular rate Gastrointestinal (Abdomen) Inspection/Auscultation: + abdominal surgical incision (dermabond over port sites, reddness with blanching around dermabond ) and + abdominal surgical drain present (IR drain); abdomen not distended Percussion/Palpation: + abdomen tender (mid epigastric ) and abdomen soft; no guarding and abdomen not firm Discharge Data Allergies Allergy/AdvReac Type Severity Reaction Status Date / Time chlorhexidine Allergy Intermediate swelling, Verified 08/31/23 05:59 pain, redness, itchy at incision sites nortriptyline Allergy Intermediate Tachycardia Verified 08/31/23 05:59 oxycodone AdvReac Mild Flushing Verified 08/31/23 14:07 Consultations 09/05/23 18:21 ED Decision to Admit Stat 09/06/23 11:15 Consult Gastroenterology Routine Procedures Performed 09/10/23 IR catheter placement Operation Date: 09/06/23 15:30 Actual Procedures p Esophagogastroduodenoscopy - Felix Bernabe MD p Endoscopic Ultrasonography Upper with FNA - Felix Bernabe MD p Endoscopic Retrograde Cholangiopancreato balloon sweep/stent placement - Felix Bernabe MD Ordered Studies 09/05/23 16:30 CT Abd and Pelvis [CT abd pelvis IV con only] Stat 09/05/23 19:22 US venous doppler LE BI Stat 09/06/23 FL ERCP biliary ductal Routine 09/06/23 15:20 US upper EUS PACS images Routine 09/10/23 15:00 IR AD peritoneal/retro w/gdnce Routine Hospital Course (1) Bile leak, postoperative: Patient presented to the hospital on 09/05/23 with complaint of increased abdominal pain and right leg swelling. Imagining revealed a post operative bile leak from a lap cholecystectomy on 08/31/23 and peritoneal DVT. Patient was admitted to the hospital and placed on blood thinners. Patient then underwent a EGD ERCP with placement of stents on 09/06/23. You had an IR drain placement on 09/10/23. You were discharged in stable condition on 09/12/23 with your IR drain. You were instructed to continue your blood thinners and were given a prescription for Augmentin and Fluconazole. You were instructed to get outpatient labs on 09/13/23 and 09/14/23, and to follow up o/p with Dr. Yossi Montelongo. Total Time Total Time Spent Total Time Spent (In Minutes): 20 Discharge Plan Discharge Items Patient Disposition: Home - Self-Care Reason For Visit: POST-OP PAIN Discharge Diagnosis: bile leak Activity: Per Instructions section Lifting: No more than 25 pounds Bathing: No limitations Bathing Comment: no pools/tub soaks for 2 weeks from original surgery Exercise/Sports: Wait until after follow-up appointment Driving/Machine Use: no driving while taking narcotics for pain Non-emergency contact: Surgeon Call non-emergency contact if: you have any medication questions, your symptoms worsen, your pain is unusual for you, you have a fever, your temperature is above 101.5, your wound has increased redness and your wound pain has increased Follow-up/Referrals: Felix Bernabe MD [Physician] - Davion Alvarado PA-C [Primary Care Provider] - Renata Sandoval DO [Physician] - 09/26/23 3:00 pm (Please call to schedule follow up in clinic within 2 weeks) Diet: Low Fat Ambulatory Orders: Complete Blood Count with Diff (Timed) Timeframe: [id number] Location: Determined by Patient Ordered By: Jennifer Chauhan Attending Provider Instructions: Follow up with Dr. Sandoval in the office as instructed You need to have your labs drawn tomorrow 09/13/23 and Sunday09/14/23 Follow up with gastroenterology as an outpatient for stent removal as instructed by their team within 3 months Pending Studies at Discharge: No Stand-Alone Forms: [employer], Smoking Cessation Medications and DC Order Prescriptions: New fluconazole [Diflucan] 200 mg tablet 400 mg PO DAILY MDD 2 tabs 7 Days Qty: 14 0RF Rx Instructions: Take 400mg ( 2 tabs ) my mouth daily for seven days Continued Eliquis 5 mg tablet 5 mg PO BID Qty: 60 11RF Hold Instructions: Resume on 09/05/23. torsemide 20 mg tablet 20 mg PO QAM lisinopril 2.5 mg tablet 2.5 mg PO QAM vitamin B complex Tablet 1 tab PO QAM magnesium chloride 64 mg tablet extended release 64 mg PO QAM melatonin 3 mg capsule 6 mg PO HS PRN (Reason: Sleep) sumatriptan succinate 100 mg tablet 100 mg PO .COMPLEX PRN (Reason: migraine headache) 30 Days Qty: 9 3RF Rx Instructions: take 1 tab at onset of headache, may repeat in 2 hrs prn, Limit 2-3 days/week cholecalciferol (vitamin D3) 50 mcg (2,000 unit) capsule 2,000 unit PO QAM multivitamin Tablet 1 tab PO QAM docusate sodium [Stool Softener] 100 mg Capsule 100 mg PO DAILY PRN (Reason: Constipation) tizanidine 2 mg Tablet 2 mg PO HS levothyroxine 100 mcg tablet 100 mcg PO QAM betamethasone, augmented 0.05 % cream 1 applic TOPICAL BID PRN (Reason: Rash) omeprazole 20 mg capsule,delayed release(DR/EC) 20 mg PO QAM PRN (Reason: Heartburn) acetaminophen 500 mg Tablet 500 mg PO Q8H PRN (Reason: Pain) zinc Tablet,Chewable 1 tab PO QAM PRN (Reason: Other) zolpidem [Ambien CR] 6.25 mg Tablet,Ext Release Multiphase 6.25 mg PO HS PRN (Reason: Sleep) PreserVision AREDS 2,148 mcg-113 mg-45 mg-17.4mg Tablet 1 tab PO QAM hydrocodone-acetaminophen 5-325 mg tablet 1 - 2 tab PO .C6a-v6h MDD no more than 6 tabs in 24 hour PRN (Reason: pain) Qty: 15 0RF Discharge Orders: Discharge Order (Routine); Ordered 09/12/23 Ordered By: Jennifer Gonzalez Admission Data Admit Date/Time: 09/05/23 19:28 Attending Provider: Matthew Hickey Admit Provider: Matthew Hickey Primary Care Provider: Davion Alvarado Other Providers: Matthew Hickey ; Felix Bernabe Other Interventions: Discharge Summary Assessment (RN) Last Done: 09/12/23 14:49 Coding Level of Care Code 99125 IN/OBS DISCH 30 MIN/LESS Diagnoses Bile leak, postoperative K91.89; K83.8
== END 2023-09-12 14:50 | disposition home or self-care (01) | DRG 394 ==
LOC: ED 13:34 → 3W 19:28